=== PATIENT | male | born 1965 | race American Indian/Alaskan Native ===

== ENCOUNTER 2018-04-07 16:21 | Inpatient (IN) | payer OTHER ==
[2018-04-07] MEDS ORDERED: NACL 0.9% 1000 ML 1,000 ML IV ONE ×2 (16:34→17:33)
[2018-04-07] MEDS ORDERED: ZOFRAN IV ONE (17:33)
[2018-04-07] MEDS ORDERED: SUBLIMAZE IV ONE (17:33)
[2018-04-07 17:37] LABS: Basophils % (Auto) 0.2 % (0.0-1.8); Hematocrit 51.6 % (35.5-45.6); Hemoglobin 17.1 gm/dl (11.8-15.2); Lymphocytes # (Auto) 1.2 K/mm3 (1.2-5.4); Lymphocytes % (Auto) 8.5 % (13.4-35.0); Mean Corpuscular HGB Conc 33 % (32-34); Mean Corpuscular Hemoglobin 28 pg (28-32); Mean Corpuscular Volume 86 fl (84-94); Monocytes # (Auto) 0.7 K/mm3 (0.0-0.8); Monocytes % (Auto) 5.1 % (0.0-7.3); Platelet Count 325 K/mm3 (140-440); Red Blood Count 6.03 M/mm3 (3.65-5.03); Red Cell Distribution Width 14.6 % (13.2-15.2)
--- NOTE | 2018-04-07 17:39 | Emergency Department Report ---
HPI - General Chief Complaint: Abdominal Pain Time Seen by Provider: 04/07/18 17:34 - HPI HPI: Room 17 The patient is a 53-year-old male presented with the chief complaint of abdominal pain. The patient states his symptoms began 2 days ago with midepigastric abdominal pain. The patient states he thought it was his acid reflux. Patient states the pain continued to worsen and he has experienced nausea and vomiting. The patient states he does not have an appetite and has not eaten for the past 2 days. The patient states the pain then migrated to his his entire right abdomen and caused him to fall today prompting him to come to the emergency department. The patient is uncertain if he's had a fever. The patient gives his pain a score of 10/10 Location: [See above] Duration: [See above] Quality: [See above] Severity: [See above] Modifying factors: [see above] Context: [see above] Mode of transportation: [not driving] ED Past Medical Hx - Past Medical History Hx Hypertension: Yes Hx GERD: Yes Hx Psychiatric Treatment: Yes (depression) - Surgical History Additional Surgical History: Eye surgery, herniorrhaphy - Family History Family history: no significant - Social History Smoking Status: Current Every Day Smoker (1 pack per day) Substance Use Type: Alcohol (rarely), Cocaine (last use approximately 2 weeks ago), Marijuana ED Review of Systems ROS: Stated complaint: ABD PAIN 2 DAYS WORSEN TODAY Other details as noted in HPI Constitutional: fever (patient is uncertain) Eyes: denies: eye pain ENT: denies: throat pain Respiratory: no symptoms reported Cardiovascular: denies: chest pain Endocrine: denies: unexplained weight gain Gastrointestinal: abdominal pain, nausea, vomiting. denies: diarrhea Genitourinary: denies: dysuria Musculoskeletal: denies: back pain Skin: denies: change in color Neurological: denies: headache Physical Exam - Physical Exam Vital Signs: Vital Signs 04/07/18 16:29 Temperature 97.9 F Pulse Rate 76 Blood Pressure 184/122 Physical Exam: GENERAL: The patient is well-developed well-nourished male lying on stretcher appearing to be in moderate discomfort. [] HEENT: Normocephalic. Atraumatic. Extraocular motions are intact. Patient has moist mucous membranes. NECK: Supple. Trachea midline CHEST/LUNGS: Clear to auscultation. There is no respiratory distress noted. HEART/CARDIOVASCULAR: Regular. There is no tachycardia. There is no gallop rub or murmur. ABDOMEN: Abdomen is tender to palpation greatest in the right lower quadrant. There is tenderness to palpation in the right upper quadrant and mild discomfort to palpation in the left lower quadrant. There is no discomfort to palpation in the left upper quadrant. Patient has normal bowel sounds. There is no abdominal distention. SKIN: There is no rash. There is no edema. There is no diaphoresis. NEURO: The patient is awake, alert, and oriented. The patient is cooperative. The patient has normal speech MUSCULOSKELETAL: There is no evidence of acute injury. ED Course Vital Signs 04/07/18 16:29 Temperature 97.9 F Pulse Rate 76 Blood Pressure 184/122 - Consultations Consultation #1: 04/07/18 17:[address] Winchester 04/07/18 19:09 CT report discussed with Dr. Cannon. En route Consultation #2: 04/07/18 19:08 Vascular surgery paged 04/07/18 19:[address] Price- Will look at CT ED Medical Decision Making - Lab Data Result diagrams: 04/07/18 16:51 04/07/18 16:51 Laboratory Tests 04/07/18 04/07/18 04/07/18 16:51 16:51 17:48 WBC 14.5 H RBC 6.03 H Hgb 17.1 H Hct 51.6 H MCV 86 MCH 28 MCHC 33 RDW 14.6 Plt Count 325 Lymph % (Auto) 8.5 L [place] % (Auto) 5.1 Eos % (Auto) 0.0 Baso % (Auto) 0.2 Lymph # 1.2 [place] # 0.7 Eos # 0.0 Baso # 0.0 Seg Neutrophils % 86.2 H Seg Neutrophils # 12.5 H PT INR APTT Sodium 136 L Potassium 3.3 L Chloride 89.5 L Carbon Dioxide 27 Anion Gap 23 BUN 19 Creatinine 0.9 Estimated GFR > 60 BUN/Creatinine Ratio 21 Glucose 142 H Calcium 9.7 Total Bilirubin 0.50 AST 48 H ALT 25 Alkaline Phosphatase 97 Total Protein 7.9 Albumin 4.7 Albumin/Globulin Ratio 1.5 Blood Type O POSITIVE 04/07/18 17:56 WBC RBC Hgb Hct MCV MCH MCHC RDW Plt Count Lymph % (Auto) [place] % (Auto) Eos % (Auto) Baso % (Auto) Lymph # [place] # Eos # Baso # Seg Neutrophils % Seg Neutrophils # PT 12.7 INR 0.91 APTT 30.3 Sodium Potassium Chloride Carbon Dioxide Anion Gap BUN Creatinine Estimated GFR BUN/Creatinine Ratio Glucose Calcium Total Bilirubin AST ALT Alkaline Phosphatase Total Protein Albumin Albumin/Globulin Ratio Blood Type - Radiology Data Radiology results: report reviewed (CT abdomen and pelvis), image reviewed (CT abdomen and pelvis) [facility] [address] [place] [address] Cat Scan Report Signed Patient: KATIANA SIMENTAL JR MR#: [id number] : 1965 Acct:[id number] Age/Sex: 53 / M ADM Date: 04/07/18 Loc: ED Attending Dr: Ordering Physician: SAMUEL LI MD Date of Service: 04/07/18 Procedure(s): CT abdomen pelvis w con Accession Number(s): [id number] cc: SAMUEL LI MD FINAL REPORT EXAM: CT ABDOMEN PELVIS W CON HISTORY: right-sided abdominal pain. Concern for free air TECHNIQUE: Axial contrasted images were performed from the lung bases to the pubic symphysis. Multiplanar reformats are performed on the acquisition scanner. Total exam DLP 1900.33 mGy-cm Comparison: Plain film earlier same day FINDINGS: Mild posterior dependent atelectasis. Thickened distal esophagus incompletely assessed. Decompressed stomach is mildly motion degraded. There is free fluid around the distal gastric antrum/pylorus/duodenum. There is free fluid in the right pericolic gutter. There is free intraperitoneal air. Normal enhancement and appearance of the liver, spleen, pancreas, and bilateral kidneys. There is bilateral adrenal hyperplasia. Normal enhancement of the aorta and mesenteric vessels. Free pelvic fluid. Moderately distended urinary bladder. Prostate is upper limits normal size. There is a left inguinal hernia containing fat. Sigmoid colon is minimally distended. Transverse colon is distended with air. Proximal transverse colon demonstrates oral contrast. There are multiple small retroperitoneal lymph nodes. There is mild soft tissue reticulation within the mesenteric and omental fat in the right upper quadrant and midline abdomen. Delayed phase imaging demonstrates normal excretion of contrast from the kidneys and filling of the urinary bladder. There is mild thickening of the distal gastric antral wall. Lumbosacral degenerative disc disease. There is a focal dissection of the right common femoral artery with normal perfusion identified distally. The craniocaudal segment of dissection is approximately 2.5 centimeters. IMPRESSION: Free intraperitoneal air and fluid. Non dependent air bubbles around the liver and anterior to the splenic flexure in the left upper quadrant. The most localized air bubbles appear to be around the region the distal gastric antrum and pylorus with air and fluid localized to this location. Findings are concerning for gastric or duodenal ulcer disease with perforation. Exam is motion degraded which limits the sensitivity. Multiple mildly prominent gastrohepatic ligament lymph nodes. Distal esophagus is incompletely imaged but extremely thick-walled. Bilateral adrenal hyperplasia. Focally dissected right common femoral artery with normal perfusion distally although only a limited distal section was imaged. This finding is seen on images 164 to 174 series two. Critical level 1 result. Findings are called on 04/07/2018 at [address] Li. Transcribed By: MP Dictated By: LINUS YANCEY Electronically Authenticated By: LINUS YANCEY Signed Date/Time: 04/07/181902 DD/ 02 TD/TT: 04/07/181902 - Differential Diagnosis bowel perforation, appendicitis Critical care attestation.: If time is entered above; I have spent that time in minutes in the direct care of this critically ill patient, excluding procedure time. ED Disposition Clinical Impression: Bowel perforation, Acute abdominal pain, Dissection of other specified artery Disposition: OP ADMIT IP TO THIS HOSP Is pt being admited?: Yes Does the pt Need Aspirin: No Condition: Serious Referrals: PRIMARY CARE,MD [Primary Care Provider] - 3-5 Days Time of Disposition: 19:25 (awaiting OR)
[2018-04-07] MEDS ORDERED: ZOSYN/NS 4.5GM/100ML 4.5 GM/100 ML VIAL IV ONE (17:45)
[2018-04-07 17:50] LABS: Alanine Aminotransferase 25 units/L (7-56); Albumin 4.7 g/dL (3.9-5); BUN/Creatinine Ratio 21; Blood Urea Nitrogen 19 mg/dL (9-20); Calcium 9.7 mg/dL (8.4-10.2); Hemolysis Index 5
[2018-04-07] MEDS ORDERED: FLAGYL 500 MG/100 ML 500 MG/100 ML BAG IV ONE (18:00)
[2018-04-07 18:27] LABS: INR 0.91 (0.87-1.13)
[2018-04-07 18:28] LABS: Partial Thromboplastin Time 30.3 Sec. (24.2-36.6)
[2018-04-07] MEDS ORDERED: VERSED ONE (18:35)
[2018-04-07] MEDS ORDERED: XYLOCAINE MPF 2% ONE (18:35)
[2018-04-07] MEDS ORDERED: QUELICIN ONE (18:35)
[2018-04-07] MEDS ORDERED: SUBLIMAZE ONE ×2 (18:35→22:04)
[2018-04-07] MEDS ORDERED: DIPRIVAN 10 MG/ML IV ONE (18:35)
[2018-04-07] MEDS ORDERED: ZEMURON IV ONE (18:35)
[2018-04-07] MEDS ORDERED: ANCEF ONE ×2 (18:36→19:08)
--- NOTE | 2018-04-07 18:40 | XRay Report ---
FINAL REPORT EXAM: XR ABDOMEN 2V HISTORY: abd pain TECHNIQUE: Supine and upright views of the abdomen were performed Comparison: CT same day FINDINGS: There is free intraperitoneal air. Bowel gas pattern is nonspecific. IMPRESSION: Free intraperitoneal air. Critical level 1 result. Findings called on 04/07/[address] examination dictation. 1833 hours.
--- NOTE | 2018-04-07 18:42 | History and Physical Report ---
History of Present Illness Chief complaint: My stomach hurts real bad History of present illness: 53 YO Male with HTN, GERD, Nicotine Dependence, Depression, Substance Abuse presents to ED for evaluation. Pt states that he has experienced abdominal pain over the past 2 days, with worsening symptoms over the same time frame. Pt states that his pain is 10/10, initially localized to the right side of his abdomen, but has spread over his entire abdomen over since the pain started. Pt acknowledges persistent nausea, as well as multiple episodes of vomiting. Pt is unable to tolerate oral diet. Pain is worse with movement, and touching his abdomen, and is less pain with non movement. Pt seen and evaluated in ED and found to have Peritonitis as well as Perforated Bowel. Pt admitted to telemetry. Surgery consulted. Pt taken urgently to OR as per surgical team. Past History Past Medical History: GERD, hypertension, other (Depression) Past Surgical History: hernia repair, Other (eye surgery) Social history: smoking, other (Cocaine use, ) Medications and Allergies Allergies Allergy/AdvReac Type Severity Reaction Status Date / Time No Known Allergies Allergy Unverified 04/07/18 16:33 Active Meds: Active Medications Sodium Chloride (Nacl 0.9% 1000 Ml) 1,000 mls @ 250 mls/hr IV ONCE ONE Stop: 04/07/18 20:33 Last Admin: 04/07/18 17:50 Dose: 250 mls/hr Review of Systems Constitutional: no weight loss, no weight gain, no fever, no chills Ears, nose, mouth and throat: no ear pain, no ear discharge, no tinnitis, no decreased hearing, no nose pain, no nasal congestion Cardiovascular: no chest pain, no orthopnea, no palpitations, no edema, no syncope, no lightheadedness Respiratory: no cough, no cough with sputum, no excessive sputum, no hemoptysis , no shortness of breath Gastrointestinal: abdominal pain, nausea, vomiting, no hematemesis, no coffee ground emesis, no BRBPR, no melena, no hematochezia, no excessive gas, no jaundice, no dyspepsia/bloating Genitourinary Male: no dysuria, no hematuria, no flank pain, no discharge, no urinary frequency, no nocturia Rectal: no pain, no incontinence, no bleeding Musculoskeletal: no neck stiffness, no neck pain, no shooting arm pain, no arm numbness/tingling, no low back pain, no shooting leg pain Integumentary: no rash, no pruritis, no redness, no sores, no wounds Neurological: no transient paralysis, no paralysis, no weakness, no parathesias , no numbness, no tingling, no seizures, no syncope Psychiatric: no anxiety, no memory loss, no change in sleep habits, no sleep disturbances, no insomnia, no hypersomnia, no change in appetite, no change in libido Endocrine: no cold intolerance, no heat intolerance, no polyphagia, no excessive thirst, no polydipsia, no polyuria, no nocturia, no excessive sweating Hematologic/Lymphatic: no easy bruising, no easy bleeding, no lymphadenopathy, no lymphedema Allergic/Immunologic: no urticaria, no allergic rhinitis, no wheezing, no persistent infections, no anaphylaxis, no angioedema Exam - Constitutional Vitals: Temp Pulse Resp BP Pulse Ox 97.9 F 50 L 14 184/122 04/07/18 16:29 04/07/18 17:49 04/07/18 17:50 04/07/18 16:29 General appearance: Present: mild distress - EENT Eyes: Present: PERRL, miosis ENT: hearing intact, clear oral mucosa - Neck Neck: Present: supple, normal ROM - Respiratory Respiratory effort: normal Respiratory: bilateral: CTA - Cardiovascular Heart Sounds: Present: S1 & S2. Absent: rub, click - Extremities Extremities: pulses symmetrical, No edema Peripheral Pulses: within normal limits - Abdominal General gastrointestinal: Present: soft, tender, non-distended, rigid, hypoactive bowel sounds. Absent: mass, hernia, other Localized gastrointestinal: tender: diffuse, guarding: diffuse, rebound: diffuse Male genitourinary: Present: normal - Rectal Rectal Exam: normal exam-external/orifice - Integumentary Integumentary: Present: clear, warm, dry - Musculoskeletal Musculoskeletal: gait normal, strength equal bilaterally - Psychiatric Psychiatric: appropriate mood/affect, intact judgment & insight - Neurologic Neurologic: CNII-XII intact, moves all extremities Results - Labs CBC & Chem 7: 04/07/18 16:51 04/07/18 16:51 Labs: Abnormal lab results 04/07/18 04/07/18 Range/Units 16:51 16:51 WBC 14.5 H (4.5-11.0) K/mm3 RBC 6.03 H (3.65-5.03) M/mm3 Hgb 17.1 H (11.8-15.2) gm/dl Hct 51.6 H (35.5-45.6) % Lymph % (Auto) 8.5 L (13.4-35.0) % Seg Neutrophils % 86.2 H (40.0-70.0) % Seg Neutrophils # 12.5 H (1.8-7.7) K/mm3 Sodium 136 L (137-145) mmol/L Potassium 3.3 L (3.6-5.0) mmol/L Chloride 89.5 L (98-107) mmol/L Glucose 142 H (75-100) mg/dL AST 48 H (5-40) units/L Assessment and Plan - Patient Problems (1) Peritonitis (acute) generalized Current Visit: Yes Status: Acute Plan to address problem: IV antibiotic therapy, Surgery consulted in ED, Pt taken urgently to OR for surgical intervention. CT Abdomen pelvis, NPO, (2) Nicotine dependence with withdrawal Current Visit: Yes Status: Acute Qualifiers: Nicotine product type: cigarettes Qualified Code(s): F17.213 - Nicotine dependence, cigarettes, with withdrawal Plan to address problem: smoking cessation counseling, supportive care. (3) Injury of right common femoral artery Current Visit: Yes Status: Acute Qualifiers: Encounter type: initial encounter Qualified Code(s): S75.001A - Unspecified injury of femoral artery, right leg, initial encounter Plan to address problem: Vascular surgery consulted in ED, (4) Bowel perforation Current Visit: Yes Status: Acute Plan to address problem: CT ABdomen/pelvis, surgery consulted in ED, pain control, serial abdominal exam (5) SIRS (systemic inflammatory response syndrome) Current Visit: Yes Status: Acute Plan to address problem: Iv antibiotic therapy, supportive care, CBC,CMP, chest x ray, urinalysis (6) Hypertensive urgency, malignant Current Visit: Yes Status: Acute Plan to address problem: monitor uop q shift, IV hydralazine prn, continue medical management (7) DVT prophylaxis Current Visit: Yes Status: Acute Plan to address problem: SCD to BLE while in bed.
[2018-04-07] MEDS ORDERED: SODIUM CHLORIDE FLUSH SYRINGE 10 ML IV PRN (18:46)
[2018-04-07] MEDS ORDERED: TYLENOL PO PRN (18:46)
[2018-04-07] MEDS ORDERED: ZOFRAN IV PRN (18:46)
[2018-04-07] MEDS ORDERED: NACL 0.9% 1000 ML IV ONE (18:51)
[2018-04-07] MEDS ORDERED: DILAUDID IV ONE (18:54)
--- NOTE | 2018-04-07 19:10 | Cat Scan Report ---
FINAL REPORT EXAM: CT ABDOMEN PELVIS W CON HISTORY: right-sided abdominal pain. Concern for free air TECHNIQUE: Axial contrasted images were performed from the lung bases to the pubic symphysis. Multiplanar reformats are performed on the acquisition scanner. Total exam DLP 1900.33 mGy-cm Comparison: Plain film earlier same day FINDINGS: Mild posterior dependent atelectasis. Thickened distal esophagus incompletely assessed. Decompressed stomach is mildly motion degraded. There is free fluid around the distal gastric antrum/pylorus/duodenum. There is free fluid in the right pericolic gutter. There is free intraperitoneal air. Normal enhancement and appearance of the liver, spleen, pancreas, and bilateral kidneys. There is bilateral adrenal hyperplasia. Normal enhancement of the aorta and mesenteric vessels. Free pelvic fluid. Moderately distended urinary bladder. Prostate is upper limits normal size. There is a left inguinal hernia containing fat. Sigmoid colon is minimally distended. Transverse colon is distended with air. Proximal transverse colon demonstrates oral contrast. There are multiple small retroperitoneal lymph nodes. There is mild soft tissue reticulation within the mesenteric and omental fat in the right upper quadrant and midline abdomen. Delayed phase imaging demonstrates normal excretion of contrast from the kidneys and filling of the urinary bladder. There is mild thickening of the distal gastric antral wall. Lumbosacral degenerative disc disease. There is a focal dissection of the right common femoral artery with normal perfusion identified distally. The craniocaudal segment of dissection is approximately 2.5 centimeters. IMPRESSION: Free intraperitoneal air and fluid. Non dependent air bubbles around the liver and anterior to the splenic flexure in the left upper quadrant. The most localized air bubbles appear to be around the region the distal gastric antrum and pylorus with air and fluid localized to this location. Findings are concerning for gastric or duodenal ulcer disease with perforation. Exam is motion degraded which limits the sensitivity. Multiple mildly prominent gastrohepatic ligament lymph nodes. Distal esophagus is incompletely imaged but extremely thick-walled. Bilateral adrenal hyperplasia. Focally dissected right common femoral artery with normal perfusion distally although only a limited distal section was imaged. This finding is seen on images 164 to 174 series two. Critical level 1 result. Findings are called on 04/07/2018 at [address] Sauceda.
--- NOTE | 2018-04-07 19:28 | Anesthesia Consultation ---
Anesthesia Consult and Med Hx Date of service: 04/07/18 - Airway Anesthetic Teeth Evaluation: Poor (multiple missing; denies loose teeth) ROM Head & Neck: Adequate Mental/Hyoid Distance: Adequate Mallampati Class: Class II Intubation Access Assessment: Probably Good - Pulmonary Exam CTA: Yes - Cardiac Exam Cardiac Exam: RRR - Pre-Operative Health Status ASA Pre-Surgery Classification: ASA3, Emergency Proposed Anesthetic Plan: General - Pulmonary Hx Smoking: Yes (current; 1PPD x many years) Hx Asthma: No Hx Respiratory Symptoms: No SOB: No - Cardiovascular System Hx Hypertension: Yes (noncompliant with home meds) Hx Heart Attack/AMI: No Hx Angina: No - Central Nervous System Hx Neuromuscular Disorder: No Hx Seizures: No CVA: No Hx Psychiatric Problems: Yes (anxiety; uncertain of home anxiety meds) - Endocrine Hx Renal Disease: No Hx Liver Disease: No Hx Insulin Dependent Diabetes: No Hx Non-Insulin Dependent Diabetes: No Hx Thyroid Disease: No - Hematic Hx Anemia: No - Other Systems Hx Substance Use: Yes (cocaine-last reported use 2 weeks ago; marijuana) Hx Cancer: No Hx Obesity: No - Additional Comments Anesthesia Medical History Comments: PMH HTN noncompliant with meds, cocaine and marijuana use with 2 days of abdominal pain, N/V. Suspicious for perforated bowel.
--- NOTE | 2018-04-07 19:42 | Progress Note ---
Assessment and Plan Full consult dictated 53 y/o male perf viscus. acute abd to O.R. guarded Selected Entries 04/07/18 19:15 Pulse Rate 77 Respiratory 19 Rate Blood Pressure 210/177 Laboratory Tests 04/07/18 04/07/18 04/07/18 16:51 16:51 17:56 WBC 14.5 H Hgb 17.1 H Hct 51.6 H PT 12.7 INR 0.91 APTT 30.3 Sodium 136 L Potassium 3.3 L Chloride 89.5 L Glucose 142 H AST 48 H ALT 25 Alkaline Phosphatase 97 Objective Vital Signs - 12hr 04/07/18 04/07/18 04/07/18 16:29 17:35 17:49 Temperature 97.9 F 98.4 F Pulse Rate 76 90 50 L Respiratory 25 H 13 Rate Blood Pressure 184/122 Blood Pressure 198/125 [Left] O2 Sat by Pulse 96 Oximetry 04/07/18 04/07/18 04/07/18 17:50 18:12 18:15 Temperature Pulse Rate 93 H 90 Respiratory 14 25 H Rate Blood Pressure 198/128 Blood Pressure [Left] O2 Sat by Pulse Oximetry 04/07/18 04/07/18 04/07/18 18:20 18:31 18:45 Temperature Pulse Rate 81 60 Respiratory 18 15 16 Rate Blood Pressure 184/104 210/101 Blood Pressure [Left] O2 Sat by Pulse Oximetry 04/07/18 04/07/18 19:01 19:15 Temperature Pulse Rate 64 77 Respiratory 12 19 Rate Blood Pressure 212/110 210/177 Blood Pressure [Left] O2 Sat by Pulse Oximetry - Labs 04/07/18 16:51 04/07/18 16:51 Diabetes panel 04/07/18 Range/Units 16:51 Sodium 136 L (137-145) mmol/L Potassium 3.3 L (3.6-5.0) mmol/L Chloride 89.5 L (98-107) mmol/L Carbon Dioxide 27 (22-30) mmol/L BUN 19 (9-20) mg/dL Creatinine 0.9 (0.8-1.5) mg/dL Glucose 142 H (75-100) mg/dL Calcium 9.7 (8.4-10.2) mg/dL AST 48 H (5-40) units/L ALT 25 (7-56) units/L Alkaline Phosphatase 97 (35-129) units/L Total Protein 7.9 (6.3-8.2) g/dL Albumin 4.7 (3.9-5) g/dL Calcium panel 04/07/18 Range/Units 16:51 Calcium 9.7 (8.4-10.2) mg/dL Albumin 4.7 (3.9-5) g/dL Pituitary panel 04/07/18 Range/Units 16:51 Sodium 136 L (137-145) mmol/L Potassium 3.3 L (3.6-5.0) mmol/L Chloride 89.5 L (98-107) mmol/L Carbon Dioxide 27 (22-30) mmol/L BUN 19 (9-20) mg/dL Creatinine 0.9 (0.8-1.5) mg/dL Glucose 142 H (75-100) mg/dL Calcium 9.7 (8.4-10.2) mg/dL Adrenal panel 04/07/18 Range/Units 16:51 Sodium 136 L (137-145) mmol/L Potassium 3.3 L (3.6-5.0) mmol/L Chloride 89.5 L (98-107) mmol/L Carbon Dioxide 27 (22-30) mmol/L BUN 19 (9-20) mg/dL Creatinine 0.9 (0.8-1.5) mg/dL Glucose 142 H (75-100) mg/dL Calcium 9.7 (8.4-10.2) mg/dL Total Bilirubin 0.50 (0.1-1.2) mg/dL AST 48 H (5-40) units/L ALT 25 (7-56) units/L Alkaline Phosphatase 97 (35-129) units/L Total Protein 7.9 (6.3-8.2) g/dL Albumin 4.7 (3.9-5) g/dL
[2018-04-07] MEDS ORDERED: VANCOMYCIN 1,750 MG in NACL 0.9% 500 ML 500 ML IV ONE (19:51)
[2018-04-07 19:53] LABS: Bilirubin,Urine NEG (Negative); Blood,Urine MOD (Negative); Color,Urine Yellow (Yellow); Mucus,Urine 2+ /HPF; Urobilinogen,Urine < 2.0 mg/dL (<2.0)
--- NOTE | 2018-04-07 20:01 | Event Note ---
Date: 04/07/18 Patient with perforated viscus on his way to the OR was noted to have a focal right common femoral artery dissection without flow limitation. Patient appears outflow distal in both the SFA and profunda. Once patient is stabilized from a abdominal point of view, will evaluate further.
[2018-04-07] MEDS ORDERED: APRESOLINE IV ONE (20:11)
[2018-04-07] MEDS ORDERED: NACL 0.9% 1000 ML 1,000 ML ONE (20:21)
[2018-04-07] MEDS ORDERED: DIFLUCAN 200 MG/100 ML BAG IV ONE (20:29)
[2018-04-07] MEDS ORDERED: DIPRIVAN 10 MG/ML 1,000 MG/100 ML BOTTLE IV ONE (21:40)
[2018-04-07] MEDS ORDERED: DILAUDID ONE (21:40)
[2018-04-07] MEDS: DILAUDID IV PRN ×4 (21:50→22:55)
[2018-04-07] MEDS ORDERED: PROTONIX IV SCH (22:00)
[2018-04-07] MEDS: SUBLIMAZE IV PRN ×2 (22:05→23:40)
[2018-04-07] MEDS ORDERED: VASELINE LIP THERAPY TP PRN (22:10)
--- NOTE | 2018-04-07 22:16 | Anesthesia Day of Surgery ---
Anesthesia Day of Surgery - Day of Surgery Patient Examined: Yes Patient H&P Reviewed: Yes Patient is NPO: Yes
[2018-04-07] MEDS ORDERED: APRESOLINE IV PRN (22:28)
[2018-04-07] MEDS: NORMODYNE IV PRN (22:30)
[2018-04-07] MEDS ORDERED: DIPRIVAN 10 MG/ML 1,000 MG/100 ML BOTTLE IV SCH (23:00)
--- NOTE | 2018-04-07 23:01 | XRay Report ---
FINAL REPORT EXAM: XR CHEST 1V AP HISTORY: chest pain TECHNIQUE: AP portable view of the chest PRIORS: None. FINDINGS: Lines, tubes, and devices: Endotracheal tube terminates 6 cm above the sabino. Nasogastric tube tip terminates within the stomach. Lungs and pleura: Trachea is normal in position. Lungs are clear of infiltrate, pleural effusion, vascular congestion, or pneumothorax. Cardiomediastinal silhouette: Cardiac and mediastinal silhouettes are unremarkable. Other: Bony structures are intact. IMPRESSION: No acute cardiopulmonary process seen.
[2018-04-07] MEDS: APRESOLINE IV PRN (23:05)
--- NOTE | 2018-04-07 23:35 | Consultation ---
ADMITTING DIAGNOSIS: Rule out perforated viscus. HISTORY OF PRESENT ILLNESS: The patient is a 53-year-old gentleman who presented to the Emergency Room with approximately 2-day history of progressively worsening epigastric and generalized abdominal pain accompanied by nausea and vomiting. PAST MEDICAL HISTORY: Pertinent for GERD, hypertension and anxiety. PAST SURGICAL HISTORY: Status post right inguinal hernia repair and also surgery. ALLERGIES: No known allergies. MEDICATIONS: Includes amlodipine. FAMILY HISTORY: Hypertension. SOCIAL HISTORY: He was a heavy drinker, but " Smokes a pack a day for approximately 35 years. PHYSICAL EXAMINATION: GENERAL: At this time reveals the patient to be in obvious distress and complaining of pain. VITAL SIGNS: Show a high blood pressure of 210/177 consistent with his abdominal pain, pulse is 77, respirations of 19. ABDOMEN: Examination of the abdomen reveals epigastric tenderness and diffuse abdominal tenderness consistent with acute abdomen. Bowel sounds are hypoactive to absent. LABORATORY AND DIAGNOSTIC DATA: Lab work at present includes a CBC which shows a white count of 14.5, H and H is 17 and 51. PT, PTT and INR within normal limits. Electrolytes show low sodium of 136, low potassium of 3.3, low chloride of 89.5. BUN is 19, creatinine is 0.9. LFTs are essentially normal. Glucose is 142. A CT scan of the abdomen has been performed whose findings show free intraperitoneal air and fluid appears to be more so localized around the gastric antrum and pylorus. Also, there is mention of a focal dissecting right common femoral artery with normal perfusion distally. IMPRESSION: 1. At this time is that of a 53-year-old hypertensive gentleman with an acute abdomen, perforated viscus most likely secondary to perforated peptic ulcer. 2. I described dissection in right common femoral. PLAN: 1. At this time is to proceed with the emergency exploratory laparotomy and repair of perforated viscus. 2. Vascular Surgery has also been consulted so they can evaluate the patient whether they need to do anything endovascularly or open. Condition at this time is guarded. I will proceed with emergency exploratory laparotomy. Thank you very much for consultation. JOB# [id number] FP/NTS
[2018-04-07] MEDS ORDERED: NARCAN 0.4 MG/1 ML IV PRN (23:40)
[2018-04-07] MEDS ORDERED: NACL 0.9% 1000 ML 1,000 ML IV SCH (23:45)
--- NOTE | 2018-04-07 23:50 | Post Anesthesia Evaluation ---
- Post Anesthesia Evaluation Patient Participated: Yes Airway Patent: Yes Stable Respiratory Function: Yes Nausea/Vomiting: No Temp > 96.8F: Yes Pain Manageable: Yes (Dilaudid PUSHER RUNNER ordered for analgesia) Adequeate Hydration: Yes Anesthesia Complications: No Block Receding Appropriately: Not Applicable Patient on Ventilator: No (Extubated in PACU at 2250 to AR.) Other Comments: Arrived to PACU intubated/sedated. Prior to extubation, demonstrated adequate muscle strength and followed commands. Extubated to AR and encouraged IS use. Significant hypertension (near preop baseline) which is being managed with IV antihypertensives and analgesics. Patient will be transferred to ICU once bed available.
[2018-04-08] MEDS: DILAUDID PCA 6MG/30ML IV SCH ×2 (00:20→17:12)
[2018-04-08] MEDS: ZOSYN/NS 4.5GM/100ML 4.5 GM/100 ML VIAL IV SCH ×3 (01:15→17:13)
--- NOTE | 2018-04-08 05:51 | Operative Report ---
PREOPERATIVE DIAGNOSIS: Acute abdomen and sepsis, rule out perforated viscus. POSTOPERATIVE DIAGNOSIS: Perforated prepyloric ulcer. PROCEDURE: Emergency exploratory laparotomy and Paul patch of perforated prepyloric ulcer. SURGEON: Jorje Winchester MD ANESTHESIA: General. ESTIMATED BLOOD LOSS: Minimal. DRAINS: No drains. COMPLICATIONS: No complications. DESCRIPTION OF PROCEDURE: The patient was taken to the operating room, prepped and draped in the usual sterile fashion. Midline incision was made, extending from xiphoid down to umbilicus. Electrocautery was used to dissect through linea alba and abdomen entered. Upon entrance into the abdomen, bilious drainage was noted in the subhepatic space. This fluid was cultured with aerobic and anaerobic cultures. A pull suction was used to suction out the fluid and the area inspected. A large prepyloric ulcer was identified. Digital inspection of the undersurface of the ulcer down into the mucosa revealed no evidence of induration or gross pathology. A Paul patch was then performed. Four 3-0 silk sutures were placed through the serosa and mucosa on either side of the perforation. A portion of omentum was then on laid over the area and the sutures tied over the omental patch. The entire area was irrigated copiously and suctioned dry. Checked for hemostasis and noted to be dry. The patient was placed in a reverse Trendelenburg position and once again the entire peritoneal cavity was copiously irrigated including the subdiaphragmatic areas as well as colonic gutters and pelvis until the aspirate was clear. The patch was once again inspected and noted to be intact. No evidence of any further leakage or bilious drainage noted. The fascia was then closed with interrupted #1 Vicryl suture. Subcutaneous tissues copiously irrigated. Skin closed loosely with ken and packed with Telfa fracisco soaked in Betadine. Fluffs and pressure dressing applied. Abdominal binder will also be placed. The patient tolerated the procedure well, but remains in guarded condition. The patient is being kept intubated as per Anesthesia and will be transferred to ICU post-recovery for further resuscitation and management. JOB# [id number] RAYO/TYLER
[2018-04-08] MEDS: APRESOLINE IV PRN (08:00)
[2018-04-08 09:02] LABS: Hematocrit 47.1 % (35.5-45.6); Hemoglobin 15.8 gm/dl (11.8-15.2); Mean Corpuscular HGB Conc 34 % (32-34); Mean Corpuscular Hemoglobin 29 pg (28-32); Mean Corpuscular Volume 85 fl (84-94); Platelet Count 266 K/mm3 (140-440); Red Blood Count 5.52 M/mm3 (3.65-5.03); Red Cell Distribution Width 14.8 % (13.2-15.2)
[2018-04-08 09:15] LABS: BUN/Creatinine Ratio 20; Blood Urea Nitrogen 16 mg/dL (9-20); Calcium 8.1 mg/dL (8.4-10.2); Hemolysis Index 6
[2018-04-08] MEDS: D5W/0.45% NACL/KCL 40 MEQ 40 MEQ/1,000 ML BAG IV SCH ×2 (09:33→19:19)
[2018-04-08] MEDS ORDERED: KCL IV SCH (10:00)
[2018-04-08] MEDS ORDERED: D5 IV SCH (10:00)
[2018-04-08] MEDS ORDERED: [UNRECOGNIZED DRUG - OTHER] IV SCH (10:00)
--- NOTE | 2018-04-08 10:37 | Consultation ---
History of Present Illness - Reason for Consult Consult date: 04/08/18 right common femoral artery dissection - History of Present Illness Patient presents with a 2 day history of worsening abdominal pain and was found to have a perforated gastric ulcer for which he underwent operative repair. His initial CT demonstrated short segment dissection in his right common femoral artery. There appears to be adequate blood flow distally. The patient does not have any history of right groin catheterization. He is hypertensive. Past History Past Medical History: GERD, hypertension, other (Depression) Past Surgical History: hernia repair, Other (eye surgery) Social history: smoking, other (Cocaine use, ) Medications and Allergies Allergies Allergy/AdvReac Type Severity Reaction Status Date / Time No Known Allergies Allergy Unverified 04/07/18 16:33 Active Meds: Active Medications Acetaminophen (Tylenol) 650 mg PO Q4H PRN PRN Reason: Pain MILD(1-3)/Fever >100.5/DEL CID Fentanyl (Sublimaze) 50 mcg IV Q20M PRN PRN Reason: Pain , Severe (7-10) Last Admin: 04/07/18 23:40 Dose: 50 mcg Hydralazine HCl (Apresoline) 10 mg IV Q6HR PRN PRN Reason: Hypertension Last Admin: 04/08/18 08:00 Dose: 10 mg Hydromorphone/Sodium Chloride (Dilaudid Alteration Manager 6mg/30ml) 0 mg IV DIRECT LUZ; Protocol Last Admin: 04/08/18 00:20 Dose: 0.2 cartstart Hydrophilic Ointment (Vaseline Lip Therapy) 1 applic TP Q2HR PRN PRN Reason: Dry Lips Piperacillin Sod/Tazobactam Sod (Zosyn/Ns 4.5gm/100ml) 4.5 gm in 100 mls @ 200 mls/hr IV Q8H LUZ; Protocol Last Admin: 04/08/18 09:24 Dose: 200 mls/hr Fluconazole (Diflucan) 200 mg in 100 mls @ 100 mls/hr IV Q24HR LUZ; Protocol Propofol (Diprivan 10 Mg/Ml) 1,000 mg in 100 mls @ 2.654 mls/hr IV TITR LUZ; Protocol Last Admin: 04/07/18 21:45 Dose: Not Given Sodium Chloride (Nacl 0.9% 1000 Ml) 1,000 mls @ 42 mls/hr IV DIRECT LUZ Potassium Chloride/Dextrose/Sod Cl (D5w/0.45% Nacl/Kcl 40 Meq) 40 meq in 1,000 mls @ 125 mls/hr IV DIRECT LUZ Last Admin: 04/08/18 09:33 Dose: 125 mls/hr Labetalol HCl (Normodyne) 5 mg IV Q20M PRN PRN Reason: Hypertension Last Admin: 04/07/18 22:30 Dose: 5 mg Naloxone HCl (Narcan 0.4 Mg/1 Ml) 0.1 mg IV Q2MIN PRN PRN Reason: Res Rate </= 8 or 02 SAT < 92% Ondansetron HCl (Zofran) 4 mg IV Q8H PRN PRN Reason: Nausea And Vomiting Pantoprazole Sodium (Protonix) 40 mg IV DAILY LUZ Stop: 04/12/18 21:59 Sodium Chloride (Sodium Chloride Flush Syringe 10 Ml) 10 ml IV BID LUZ Sodium Chloride (Sodium Chloride Flush Syringe 10 Ml) 10 ml IV PRN PRN PRN Reason: LINE FLUSH Review of Systems All systems: negative Exam - Constitutional Vitals: Temp Pulse Resp BP Pulse Ox 98.3 F 89 18 139/84 93 04/08/18 10:06 04/08/18 10:06 04/08/18 10:06 04/08/18 10:06 04/08/18 10:06 General appearance: Present: no acute distress - EENT Eyes: Present: PERRL ENT: hearing intact - Neck Neck: Present: supple, other (NG tube) - Respiratory Respiratory effort: normal - Abdominal General gastrointestinal: Present: deferred - Rectal Rectal Exam: deferred - Psychiatric Psychiatric: appropriate mood/affect, cooperative Results - Labs CBC & Chem 7: 04/08/18 08:43 04/08/18 08:43 Labs: Abnormal lab results 04/07/18 04/07/18 04/07/18 Range/Units 16:34 16:51 16:51 WBC 14.5 H (4.5-11.0) K/mm3 RBC 6.03 H (3.65-5.03) M/mm3 Hgb 17.1 H (11.8-15.2) gm/dl Hct 51.6 H (35.5-45.6) % Lymph % (Auto) 8.5 L (13.4-35.0) % Seg Neutrophils % 86.2 H (40.0-70.0) % Seg Neutrophils # 12.5 H (1.8-7.7) K/mm3 Sodium 136 L (137-145) mmol/L Potassium 3.3 L (3.6-5.0) mmol/L Chloride 89.5 L (98-107) mmol/L Glucose 142 H (75-100) mg/dL Calcium (8.4-10.2) mg/dL AST 48 H (5-40) units/L Ur Specific [place] 1.060 H (1.003-1.030) Urine WBC (Auto) 27.0 H (0.0-6.0) /HPF 04/08/18 04/08/18 Range/Units 08:43 08:43 WBC 19.7 H (4.5-11.0) K/mm3 RBC 5.52 H (3.65-5.03) M/mm3 Hgb 15.8 H (11.8-15.2) gm/dl Hct 47.1 H (35.5-45.6) % Lymph % (Auto) (13.4-35.0) % Seg Neutrophils % (40.0-70.0) % Seg Neutrophils # (1.8-7.7) K/mm3 Sodium 136 L (137-145) mmol/L Potassium (3.6-5.0) mmol/L Chloride (98-107) mmol/L Glucose 105 H (75-100) mg/dL Calcium 8.1 L D (8.4-10.2) mg/dL AST (5-40) units/L Ur Specific [place] (1.003-1.030) Urine WBC (Auto) (0.0-6.0) /HPF - Imaging and Cardiology CT scan - abdomen: image reviewed Assessment and Plan Patient with incidentally noted right common femoral artery dissection. He will need further evaluation with a CTA of the chest, abdomen, pelvis with runoff to the feet to determine if there are additional dissections. This can be performed during this hospitalization however, there is no urgency
[2018-04-08] MEDS: DIFLUCAN 200 MG/100 ML BAG IV SCH (11:24)
[2018-04-08] MEDS: PROTONIX IV SCH (11:37)
[2018-04-08] MEDS: SODIUM CHLORIDE FLUSH SYRINGE 10 ML IV SCH ×2 (11:38→22:50)
[2018-04-08] MEDS ORDERED: CHLORASEPTIC MM PRN (12:21)
--- NOTE | 2018-04-08 12:25 | Progress Note ---
Assessment and Plan POD 0 Pt just recently transferred to surgical floor c/o abd pain Abd soft, dressings dry. neg BS labs as below. IS d/c diego in am begin local wd care in am awaiting ID eval and intra op cults surgically stable continue present care Selected Entries 04/08/18 10:52 Temperature 98.3 F Pulse Rate 95 H Respiratory 20 Rate Blood Pressure 139/84 [Left] Laboratory Tests 04/07/18 04/08/18 04/08/18 16:51 08:43 08:43 WBC 14.5 H 19.7 H Hgb 15.8 H Hct 47.1 H Sodium 136 L Potassium 3.8 Chloride 98.5 Carbon Dioxide 24 Anion Gap 17 BUN 16 Creatinine 0.8 Objective Vital Signs - 12hr 04/08/18 04/08/18 04/08/18 00:30 01:00 01:30 Temperature 98.2 F Pulse Rate 97 H 97 H 102 H Respiratory 10 L 15 10 L Rate Respiratory Rate [Abdomen] Blood Pressure Blood Pressure 162/105 149/101 160/106 [Left] O2 Sat by Pulse 95 95 95 Oximetry 04/08/18 04/08/18 04/08/18 02:00 02:30 03:00 Temperature 98.3 F Pulse Rate 89 86 94 H Respiratory 12 10 L 22 Rate Respiratory Rate [Abdomen] Blood Pressure Blood Pressure 178/97 169/97 162/96 [Left] O2 Sat by Pulse 96 96 96 Oximetry 04/08/18 04/08/18 04/08/18 04:00 05:00 06:00 Temperature 98.6 F 98.2 F Pulse Rate 84 88 82 Respiratory 18 12 18 Rate Respiratory Rate [Abdomen] Blood Pressure Blood Pressure 149/99 161/96 152/94 [Left] O2 Sat by Pulse 96 95 95 Oximetry 04/08/18 04/08/18 04/08/18 08:00 08:19 08:25 Temperature 98.8 F Pulse Rate 82 82 83 Respiratory 21 Rate Respiratory 21 Rate [Abdomen] Blood Pressure 173/95 Blood Pressure 168/90 [Left] O2 Sat by Pulse 93 Oximetry 04/08/18 04/08/18 10:06 10:52 Temperature 98.3 F 98.3 F Pulse Rate 89 95 H Respiratory 18 20 Rate Respiratory Rate [Abdomen] Blood Pressure 139/84 Blood Pressure 139/84 [Left] O2 Sat by Pulse 93 93 Oximetry - Labs 04/08/18 08:43 04/08/18 08:43 Diabetes panel 04/07/18 04/08/18 Range/Units 16:51 08:43 Sodium 136 L 136 L (137-145) mmol/L Potassium 3.3 L 3.8 (3.6-5.0) mmol/L Chloride 89.5 L 98.5 (98-107) mmol/L Carbon Dioxide 27 24 (22-30) mmol/L BUN 19 16 (9-20) mg/dL Creatinine 0.9 0.8 (0.8-1.5) mg/dL Glucose 142 H 105 H (75-100) mg/dL Calcium 9.7 8.1 L D (8.4-10.2) mg/dL AST 48 H (5-40) units/L ALT 25 (7-56) units/L Alkaline Phosphatase 97 (35-129) units/L Total Protein 7.9 (6.3-8.2) g/dL Albumin 4.7 (3.9-5) g/dL Calcium panel 04/07/18 04/08/18 Range/Units 16:51 08:43 Calcium 9.7 8.1 L D (8.4-10.2) mg/dL Albumin 4.7 (3.9-5) g/dL Pituitary panel 04/07/18 04/08/18 Range/Units 16:51 08:43 Sodium 136 L 136 L (137-145) mmol/L Potassium 3.3 L 3.8 (3.6-5.0) mmol/L Chloride 89.5 L 98.5 (98-107) mmol/L Carbon Dioxide 27 24 (22-30) mmol/L BUN 19 16 (9-20) mg/dL Creatinine 0.9 0.8 (0.8-1.5) mg/dL Glucose 142 H 105 H (75-100) mg/dL Calcium 9.7 8.1 L D (8.4-10.2) mg/dL Adrenal panel 04/07/18 04/08/18 Range/Units 16:51 08:43 Sodium 136 L 136 L (137-145) mmol/L Potassium 3.3 L 3.8 (3.6-5.0) mmol/L Chloride 89.5 L 98.5 (98-107) mmol/L Carbon Dioxide 27 24 (22-30) mmol/L BUN 19 16 (9-20) mg/dL Creatinine 0.9 0.8 (0.8-1.5) mg/dL Glucose 142 H 105 H (75-100) mg/dL Calcium 9.7 8.1 L D (8.4-10.2) mg/dL Total Bilirubin 0.50 (0.1-1.2) mg/dL AST 48 H (5-40) units/L ALT 25 (7-56) units/L Alkaline Phosphatase 97 (35-129) units/L Total Protein 7.9 (6.3-8.2) g/dL Albumin 4.7 (3.9-5) g/dL
--- NOTE | 2018-04-08 16:09 | Progress Note ---
Assessment and Plan / SIRS (systemic inflammatory response syndrome) due to perforated gastric ulcer Iv antibiotic therapy, supportive care, / Perforated prepyloric ulcer CT ABdomen/pelvis with free air, surgery consulted in ED s/p exploratory laparotomy and sunitha patch of the perforated ulcer / Hypertensive urgency, malignant monitor uop q shift, IV hydralazine prn, continue medical management add clonidine path / Peritonitis (acute) generalized due to viscus perforation, cont abx, follow cx / Focal right common femoral artery dissection Vascular surgery consulted in ED, No emergent surgery planned / Nicotine dependence with withdrawal smoking cessation counseling, supportive care. / DVT prophylaxis SCD to BLE while in bed. Radiological data: CT abdomen/pelvis: Free intraperitoneal air and fluid. Non dependent air bubbles around the liver and anterior to the splenic flexure in the left upper quadrant. The most localized air bubbles appear to be around the region the distal gastric antrum and pylorus with air and fluid localized to this location. Findings are concerning for gastric or duodenal ulcer disease with perforation. Exam is motion degraded which limits the sensitivity. Multiple mildly prominent gastrohepatic ligament lymph nodes. Distal esophagus is incompletely imaged but extremely thick-walled. Bilateral adrenal hyperplasia. Subjective Date of service: 04/08/18 Interval history: pt seen and examined c/o abdominal pain, on NG suction NPO for now, explained and updated clinical status at bedside with RN Objective - Constitutional Vitals: Vital Signs - 12hr 04/08/18 04/08/18 04/08/18 05:00 06:00 08:00 Temperature 98.2 F Pulse Rate 88 82 82 Respiratory 12 18 Rate Respiratory Rate [Abdomen] Blood Pressure 173/95 Blood Pressure 161/96 152/94 [Left] O2 Sat by Pulse 95 95 Oximetry 04/08/18 04/08/18 04/08/18 08:19 08:25 10:06 Temperature 98.8 F 98.3 F Pulse Rate 82 83 89 Respiratory 21 18 Rate Respiratory 21 Rate [Abdomen] Blood Pressure 139/84 Blood Pressure 168/90 [Left] O2 Sat by Pulse 93 93 Oximetry 04/08/18 10:52 Temperature 98.3 F Pulse Rate 95 H Respiratory 20 Rate Respiratory Rate [Abdomen] Blood Pressure Blood Pressure 139/84 [Left] O2 Sat by Pulse 93 Oximetry General appearance: Present: no acute distress, well-nourished - EENT Eyes: PERRL, EOM intact ENT: hearing intact, clear oral mucosa Ears: bilateral: normal - Neck Neck: supple, normal ROM - Respiratory Respiratory effort: normal Respiratory: bilateral: CTA - Cardiovascular Rhythm: regular Heart Sounds: Present: S1 & S2. Absent: gallop, rub Extremities: pulses intact, No edema, normal color, Full ROM - Gastrointestinal General gastrointestinal: Present: soft, tender, non-distended, normal bowel sounds, other (surgical dressing) - Genitourinary Male genitourinary: normal - Integumentary Integumentary: clear, warm, dry - Musculoskeletal Musculoskeletal: 1, strength equal bilaterally - Neurologic Neurologic: moves all extremities - Psychiatric Psychiatric: memory intact, appropriate mood/affect, intact judgment & insight - Labs CBC & Chem 7: 04/09/18 04:25 04/09/18 04:25 Labs: Abnormal lab results 04/07/18 04/07/18 04/07/18 Range/Units 16:34 16:51 16:51 WBC 14.5 H (4.5-11.0) K/mm3 RBC 6.03 H (3.65-5.03) M/mm3 Hgb 17.1 H (11.8-15.2) gm/dl Hct 51.6 H (35.5-45.6) % Lymph % (Auto) 8.5 L (13.4-35.0) % Seg Neutrophils % 86.2 H (40.0-70.0) % Seg Neutrophils # 12.5 H (1.8-7.7) K/mm3 Sodium 136 L (137-145) mmol/L Potassium 3.3 L (3.6-5.0) mmol/L Chloride 89.5 L (98-107) mmol/L Glucose 142 H (75-100) mg/dL Calcium (8.4-10.2) mg/dL AST 48 H (5-40) units/L Ur Specific [place] 1.060 H (1.003-1.030) Urine WBC (Auto) 27.0 H (0.0-6.0) /HPF 04/08/18 04/08/18 Range/Units 08:43 08:43 WBC 19.7 H (4.5-11.0) K/mm3 RBC 5.52 H (3.65-5.03) M/mm3 Hgb 15.8 H (11.8-15.2) gm/dl Hct 47.1 H (35.5-45.6) % Lymph % (Auto) (13.4-35.0) % Seg Neutrophils % (40.0-70.0) % Seg Neutrophils # (1.8-7.7) K/mm3 Sodium 136 L (137-145) mmol/L Potassium (3.6-5.0) mmol/L Chloride (98-107) mmol/L Glucose 105 H (75-100) mg/dL Calcium 8.1 L D (8.4-10.2) mg/dL AST (5-40) units/L Ur Specific [place] (1.003-1.030) Urine WBC (Auto) (0.0-6.0) /HPF
[2018-04-08] MEDS: NORMODYNE IV PRN (23:30)
[2018-04-09] MEDS: ZOSYN/NS 4.5GM/100ML 4.5 GM/100 ML VIAL IV SCH ×3 (02:11→19:14)
[2018-04-09] MEDS: D5W/0.45% NACL/KCL 40 MEQ 40 MEQ/1,000 ML BAG IV SCH ×2 (04:01→15:40)
[2018-04-09 04:47] LABS: Basophils % (Auto) 0.2 % (0.0-1.8); Hematocrit 42.4 % (35.5-45.6); Hemoglobin 14.1 gm/dl (11.8-15.2); Lymphocytes # (Auto) 1.4 K/mm3 (1.2-5.4); Lymphocytes % (Auto) 10.2 % (13.4-35.0); Mean Corpuscular HGB Conc 33 % (32-34); Mean Corpuscular Hemoglobin 29 pg (28-32); Mean Corpuscular Volume 86 fl (84-94); Monocytes # (Auto) 1.5 K/mm3 (0.0-0.8); Monocytes % (Auto) 11.1 % (0.0-7.3); Platelet Count 218 K/mm3 (140-440); Red Blood Count 4.94 M/mm3 (3.65-5.03); Red Cell Distribution Width 14.9 % (13.2-15.2)
[2018-04-09 05:05] LABS: BUN/Creatinine Ratio 16; Blood Urea Nitrogen 13 mg/dL (9-20); Calcium 8.3 mg/dL (8.4-10.2); Hemolysis Index 0
[2018-04-09 06:55] LABS: Bilirubin,Urine NEG (Negative); Blood,Urine LG (Negative); Color,Urine Yellow (Yellow); Granular Casts,Urine 9 /LPF; Mucus,Urine FEW /HPF; Urobilinogen,Urine < 2.0 mg/dL (<2.0)
[2018-04-09 06:56] LABS: Hyaline Casts,Urine 10 /LPF; Protein,Urine 300 mg/dL mg/dL (Negative)
[2018-04-09] MEDS: PROTONIX IV SCH (09:06)
[2018-04-09] MEDS: APRESOLINE IV PRN (09:22)
[2018-04-09] MEDS ORDERED: CATAPRES-TTS PATCH TD SCH (10:00)
[2018-04-09] MEDS: SODIUM CHLORIDE FLUSH SYRINGE 10 ML IV SCH ×2 (10:00→22:00)
[2018-04-09] MEDS: DILAUDID PCA 6MG/30ML IV SCH (10:02)
[2018-04-09] MEDS: DIFLUCAN 200 MG/100 ML BAG IV SCH (10:07)
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
--- NOTE | 2018-04-09 13:11 | Progress Note ---
Assessment and Plan POD # 1 Pt overall feeling well Abd soft, dressing dry wbc down uncontrolled HTN ET nurse has begun local wd care ID eval pending surgically stable OOB as deborah Selected Entries 04/09/18 11:55 Temperature 98.4 F Pulse Rate 74 Blood Pressure 178/96 [Left] Laboratory Tests 04/08/18 04/09/18 04/09/18 08:43 04:25 04:25 WBC 19.7 H 13.2 H Hgb 14.1 Hct 42.4 Sodium 137 Potassium 3.9 Chloride 99.7 Carbon Dioxide 27 BUN 13 Creatinine 0.8 Objective Vital Signs - 12hr 04/09/18 04/09/18 04/09/18 04:15 09:00 09:11 Temperature 98.6 F 98.3 F Pulse Rate 64 67 Respiratory 20 18 18 Rate Blood Pressure 167/85 Blood Pressure 185/92 [Left] O2 Sat by Pulse 91 96 Oximetry 04/09/18 04/09/18 04/09/18 09:22 11:05 11:55 Temperature 98.4 F Pulse Rate 67 74 Respiratory 18 18 Rate Blood Pressure 185/92 Blood Pressure 178/96 [Left] O2 Sat by Pulse 95 Oximetry - Labs 04/09/18 04:25 04/09/18 04:25 Diabetes panel 04/09/18 Range/Units 04:25 Sodium 137 (137-145) mmol/L Potassium 3.9 (3.6-5.0) mmol/L Chloride 99.7 (98-107) mmol/L Carbon Dioxide 27 (22-30) mmol/L BUN 13 (9-20) mg/dL Creatinine 0.8 (0.8-1.5) mg/dL Glucose 121 H (75-100) mg/dL Calcium 8.3 L (8.4-10.2) mg/dL Calcium panel 04/09/18 Range/Units 04:25 Calcium 8.3 L (8.4-10.2) mg/dL Pituitary panel 04/09/18 Range/Units 04:25 Sodium 137 (137-145) mmol/L Potassium 3.9 (3.6-5.0) mmol/L Chloride 99.7 (98-107) mmol/L Carbon Dioxide 27 (22-30) mmol/L BUN 13 (9-20) mg/dL Creatinine 0.8 (0.8-1.5) mg/dL Glucose 121 H (75-100) mg/dL Calcium 8.3 L (8.4-10.2) mg/dL Adrenal panel 04/09/18 Range/Units 04:25 Sodium 137 (137-145) mmol/L Potassium 3.9 (3.6-5.0) mmol/L Chloride 99.7 (98-107) mmol/L Carbon Dioxide 27 (22-30) mmol/L BUN 13 (9-20) mg/dL Creatinine 0.8 (0.8-1.5) mg/dL Glucose 121 H (75-100) mg/dL Calcium 8.3 L (8.4-10.2) mg/dL
--- NOTE | 2018-04-09 13:24 | Consultation ---
History of Present Illness - Reason for Consult Consult date: 04/09/18 thom zepeda Requesting physician: JOHN STEVE - History of Present Illness 53 y/o male with history of HTN, GERD, Nicotine Dependence, Depression, Substance Abuse and chronic heartburn; admitted on 04/07/2019 due to acute severe right-sided abdominal pain, nausea, vomiting. Patient reports that he was having nausea, vomiting and epigastric abdominal pain which he felt was his chronic heartburn for 48 hours. On April 03, patient developed severe right sided abdominal pain which made him fall to the ground and became unconscious for several seconds. A friend took him to the emergency room. Denies diarrhea or urinary symptoms. In the ED, initial temperature was 97.9, heart rate 76, blood pressure 184/112, white count 14.5, hemoglobin 17, platelets 325. Creatinine 0.9. Sodium 136. Urinalysis showed small leukocyte esterase and 27 white blood cells. Lactate 1.9. AST 48. CT of the abdomen show free air with her level fluid collection at the antrum of the stomach, multiple lymphadenopathies, focal dissected right , femoral artery. She was taken to the operating room on 04/07/2018 underwent exploratory laparotomy with repair of stomach perforation. Microbiology: Peritoneal cultures: 04/07 ngtd Current Antimicrobials: Zosyn Fluconazole Previous Antimicrobials: Past History Past Medical History: GERD, hypertension, other (Depression) Past Surgical History: hernia repair, Other (eye surgery) Social history: smoking, other (Cocaine use, ) Medications and Allergies Allergies Allergy/AdvReac Type Severity Reaction Status Date / Time No Known Allergies Allergy Unverified 04/07/18 16:33 Active Meds: Active Medications Acetaminophen (Tylenol) 650 mg PO Q4H PRN PRN Reason: Pain MILD(1-3)/Fever >100.5/DEL CID Clonidine HCl (Catapres-Tts Patch) 0.2 mg TD Mo@1000 LUZ Last Admin: 04/09/18 09:22 Dose: 0.2 mg Fentanyl (Sublimaze) 50 mcg IV Q20M PRN PRN Reason: Pain , Severe (7-10) Last Admin: 04/07/18 23:40 Dose: 50 mcg Hydromorphone/Sodium Chloride (Dilaudid [employer]'S Aide 6mg/30ml) 0 mg IV DIRECT LUZ; Protocol Last Admin: 04/09/18 10:02 Dose: 1 cartstart Hydrophilic Ointment (Vaseline Lip Therapy) 1 applic TP Q2HR PRN PRN Reason: Dry Lips Piperacillin Sod/Tazobactam Sod (Zosyn/Ns 4.5gm/100ml) 4.5 gm in 100 mls @ 200 mls/hr IV Q8H LUZ; Protocol Last Admin: 04/09/18 09:07 Dose: 200 mls/hr Fluconazole (Diflucan) 200 mg in 100 mls @ 100 mls/hr IV Q24HR LUZ; Protocol Last Admin: 04/09/18 10:07 Dose: 100 mls/hr Propofol (Diprivan 10 Mg/Ml) 1,000 mg in 100 mls @ 2.654 mls/hr IV TITR LUZ; Protocol Last Admin: 04/07/18 21:45 Dose: Not Given Potassium Chloride/Dextrose/Sod Cl (D5w/0.45% Nacl/Kcl 40 Meq) 40 meq in 1,000 mls @ 125 mls/hr IV DIRECT LUZ Last Admin: 04/09/18 04:01 Dose: 125 mls/hr Labetalol HCl (Normodyne) 5 mg IV Q20M PRN PRN Reason: Hypertension Last Admin: 04/08/18 23:30 Dose: 5 mg Naloxone HCl (Narcan 0.4 Mg/1 Ml) 0.1 mg IV Q2MIN PRN PRN Reason: Res Rate </= 8 or 02 SAT < 92% Ondansetron HCl (Zofran) 4 mg IV Q8H PRN PRN Reason: Nausea And Vomiting Pantoprazole Sodium (Protonix) 40 mg IV DAILY [facility] Stop: 04/12/18 21:59 Last Admin: 04/09/18 09:06 Dose: 40 mg Phenol (Chloraseptic) 1 spray MM PRN PRN PRN Reason: Sore Throat Sodium Chloride (Sodium Chloride Flush Syringe 10 Ml) 10 ml IV BID LUZ Last Admin: 04/08/18 22:50 Dose: 10 ml Sodium Chloride (Sodium Chloride Flush Syringe 10 Ml) 10 ml IV PRN PRN PRN Reason: LINE FLUSH Review of Systems All systems: negative (as per HPI) Physical Examination - Physical Exam Narrative exam: General appearance: Alert in NAD, conversant Eyes: anicteric sclerae, moist conjunctivae; no lid-lag; PERRLA HENT: Atraumatic; oropharynx clear poor dentition Neck: Trachea midline; supple, no thyromegaly or lymphadenopathy Lungs: CTA, with normal respiratory effort and no intercostal retractions CV: RRR, no murmurs Abdomen: Soft, mild tenderness, midline surg wound w dressings Extremities: No peripheral edema or extremity lymphadenopathy Skin: Normal temperature, turgor and texture; no rash, ulcers or subcutaneous nodules Psych: Appropriate affect, alert and oriented to person, place and time. Neuro: alert and oriented x 3. Moving all extermities Lines: No CVL / PICC - Constitutional Vitals: Vital Signs Temp Pulse Resp BP Pulse Ox 98.4 F 74 18 178/96 95 04/09/18 11:55 04/09/18 11:55 04/09/18 11:55 04/09/18 11:55 04/09/18 11:55 Temperature -Last 24 Hours Temperature 98.4 F Temperature 98.3 F Temperature 98.6 F Temperature 98.6 F Temperature 98.3 F Temperature 98.7 F Results - Labs CBC & Chem 7: 04/09/18 04:25 04/09/18 04:25 Labs: Abnormal lab results 04/09/18 04/09/18 04/09/18 Range/Units 04:25 04:25 05:28 WBC 13.2 H (4.5-11.0) K/mm3 Lymph % (Auto) 10.2 L (13.4-35.0) % Parke % (Auto) 11.1 H (0.0-7.3) % Parke # 1.5 H (0.0-0.8) K/mm3 Seg Neutrophils % 78.5 H (40.0-70.0) % Seg Neutrophils # 10.4 H (1.8-7.7) K/mm3 Glucose 121 H (75-100) mg/dL Calcium 8.3 L (8.4-10.2) mg/dL Ur Specific [place] 1.031 H (1.003-1.030) Urine WBC (Auto) 31.0 H (0.0-6.0) /HPF Assessment and Plan Assessment: 1) Leukocytosis: Present on admission. Etiology most likely - acute peritonitis. 2) Acute peritonitis: from gastric perforation -CT of the abdomen show free air with her level fluid collection at the antrum of the stomach, multiple lymphadenopathies, focal dissected right, femoral artery. -S/P operating room on 04/07/2018 underwent exploratory laparotomy with repair of stomach perforation. -Peritoneal cx no growth so far 3) HTN 4) GERD 5) Nicotine Dependence 6) Depression 7) Substance Abuse 8) UTI: likely reactive 9) Elevated LFTs; likely from perf Plan: -follow-up peritoneal cx -continue zosyn and fluconazole for now -monitor leukocytosis -upon diascharge will do po abx -check CRP, HIV and viral hep panel Thank you for your consultation, will follow up with you. Harika Duncan MD Infectious Diseases Specialist [facility] ([facility] M [phone] O [phone]
[2018-04-09 14:56] LABS: Hepatitis A Antibody IgM Non-Reactive (NonReactive); Hepatitis B Core IgM Non-Reactive (NonReactive); Hepatitis B Surface Antigen Non-Reactive (Negative); Hepatitis C Virus Antibody Non-Reactive (NonReactive)
--- NOTE | 2018-04-09 15:28 | Progress Note ---
Assessment and Plan / SIRS (systemic inflammatory response syndrome) due to perforated gastric ulcer Iv antibiotic therapy, supportive care, / Perforated prepyloric ulcer CT ABdomen/pelvis with free air, surgery consulted in ED s/p exploratory laparotomy and sunitha patch of the perforated ulcer / Hypertensive urgency, malignant monitor uop q shift, IV hydralazine prn, continue medical management add clonidine path / Peritonitis (acute) generalized due to viscus perforation, cont abx, follow cx / Focal right common femoral artery dissection Vascular surgery consulted in ED, No emergent surgery planned / Nicotine dependence with withdrawal smoking cessation counseling, supportive care. / DVT prophylaxis SCD to BLE while in bed. Radiological data: CT abdomen/pelvis: Free intraperitoneal air and fluid. Non dependent air bubbles around the liver and anterior to the splenic flexure in the left upper quadrant. The most localized air bubbles appear to be around the region the distal gastric antrum and pylorus with air and fluid localized to this location. Findings are concerning for gastric or duodenal ulcer disease with perforation. Exam is motion degraded which limits the sensitivity. Multiple mildly prominent gastrohepatic ligament lymph nodes. Distal esophagus is incompletely imaged but extremely thick-walled. Bilateral adrenal hyperplasia. Physical exam: General appearance: Present: no acute distress, well-nourished - EENT Eyes: PERRL, EOM intact ENT: hearing intact, clear oral mucosa Ears: bilateral: normal - Neck Neck: supple, normal ROM - Respiratory Respiratory effort: normal Respiratory: bilateral: CTA - Cardiovascular Rhythm: regular Heart Sounds: Present: S1 & S2. Absent: gallop, rub Extremities: pulses intact, No edema, normal color, Full ROM - Gastrointestinal General gastrointestinal: Present: soft, tender, non-distended, normal bowel sounds, other (surgical dressing) - Genitourinary Male genitourinary: normal - Integumentary Integumentary: clear, warm, dry - Musculoskeletal Musculoskeletal: 1, strength equal bilaterally - Neurologic Neurologic: moves all extremities - Psychiatric Psychiatric: memory intact, appropriate mood/affect, intact judgment & insight Subjective Date of service: 04/09/18 Interval history: pt seen and examined c/o abdominal pain, on NG suction NPO for now, explained and updated clinical status at bedside with RN Objective - Constitutional Vitals: Vital Signs - 12hr 04/09/18 04/09/18 04/09/18 04:15 09:00 09:11 Temperature 98.6 F 98.3 F Pulse Rate 64 67 Respiratory 20 18 18 Rate Blood Pressure 167/85 Blood Pressure 185/92 [Left] O2 Sat by Pulse 91 96 Oximetry 04/09/18 04/09/18 04/09/18 09:22 11:05 11:55 Temperature 98.4 F Pulse Rate 67 74 Respiratory 18 18 Rate Blood Pressure 185/92 Blood Pressure 178/96 [Left] O2 Sat by Pulse 95 Oximetry 04/09/18 15:24 Temperature 99.0 F Pulse Rate 81 Respiratory 18 Rate Blood Pressure Blood Pressure 169/88 [Left] O2 Sat by Pulse 96 Oximetry - Labs CBC & Chem 7: 04/10/18 04:05 04/10/18 04:05 Labs: Abnormal lab results 04/09/18 04/09/18 04/09/18 Range/Units 04:25 04:25 05:28 WBC 13.2 H (4.5-11.0) K/mm3 Lymph % (Auto) 10.2 L (13.4-35.0) % Sanders % (Auto) 11.1 H (0.0-7.3) % Sanders # 1.5 H (0.0-0.8) K/mm3 Seg Neutrophils % 78.5 H (40.0-70.0) % Seg Neutrophils # 10.4 H (1.8-7.7) K/mm3 Glucose 121 H (75-100) mg/dL Calcium 8.3 L (8.4-10.2) mg/dL C-Reactive Protein (0.00-1.30) mg/dL Ur Specific [place] 1.031 H (1.003-1.030) Urine WBC (Auto) 31.0 H (0.0-6.0) /HPF 04/09/18 Range/Units 14:04 WBC (4.5-11.0) K/mm3 Lymph % (Auto) (13.4-35.0) % Sanders % (Auto) (0.0-7.3) % Sanders # (0.0-0.8) K/mm3 Seg Neutrophils % (40.0-70.0) % Seg Neutrophils # (1.8-7.7) K/mm3 Glucose (75-100) mg/dL Calcium (8.4-10.2) mg/dL C-Reactive Protein 23.40 H (0.00-1.30) mg/dL Ur Specific [place] (1.003-1.030) Urine WBC (Auto) (0.0-6.0) /HPF
[2018-04-09] MEDS: NORMODYNE IV PRN ×2 (21:05→22:40)
[2018-04-10] MEDS: ZOSYN/NS 4.5GM/100ML 4.5 GM/100 ML VIAL IV SCH ×2 (01:36→10:29)
[2018-04-10] MEDS: APRESOLINE IV PRN ×2 (05:03→20:14)
[2018-04-10 05:24] LABS: Basophils # (Auto) 0.1 K/mm3 (0.0-0.1); Basophils % (Auto) 0.5 % (0.0-1.8); Eosinophils % (Auto) 0.4 % (0.0-4.3); Hematocrit 40.9 % (35.5-45.6); Hemoglobin 13.6 gm/dl (11.8-15.2); Lymphocytes # (Auto) 1.5 K/mm3 (1.2-5.4); Lymphocytes % (Auto) 14.1 % (13.4-35.0); Mean Corpuscular HGB Conc 33 % (32-34); Mean Corpuscular Hemoglobin 29 pg (28-32); Mean Corpuscular Volume 87 fl (84-94); Monocytes % (Auto) 9.3 % (0.0-7.3); Platelet Count 206 K/mm3 (140-440); Red Cell Distribution Width 14.9 % (13.2-15.2)
[2018-04-10 05:47] LABS: BUN/Creatinine Ratio 17; Blood Urea Nitrogen 12 mg/dL (9-20); Calcium 8.6 mg/dL (8.4-10.2); Hemolysis Index 4
[2018-04-10] MEDS: D5W/0.45% NACL/KCL 40 MEQ 40 MEQ/1,000 ML BAG IV SCH ×2 (06:09→18:13)
[2018-04-10] MEDS: SODIUM CHLORIDE FLUSH SYRINGE 10 ML IV SCH ×2 (10:00→22:47)
[2018-04-10] MEDS: DILAUDID PCA 6MG/30ML IV SCH (10:26)
[2018-04-10] MEDS: PROTONIX IV SCH (10:30)
[2018-04-10] MEDS: DIFLUCAN 200 MG/100 ML BAG IV SCH (10:30)
--- NOTE | 2018-04-10 11:21 | Progress Note ---
Assessment and Plan Assessment: 1) Leukocytosis: resolved. Etiology most likely - acute peritonitis. 2) Acute peritonitis: from gastric perforation -CT of the abdomen show free air with her level fluid collection at the antrum of the stomach, multiple lymphadenopathies, focal dissected right, femoral artery. -S/P operating room on 04/07/2018 underwent exploratory laparotomy with repair of stomach perforation. -Peritoneal cx +normal skin anika -CRP=23 3) HTN 4) GERD 5) Nicotine Dependence 6) Depression 7) Substance Abuse 8) UTI: likely reactive 9) Elevated LFTs; likely from perf. Viral hep panel negative. HIV neg. Plan: -stop zosyn and fluconazole -start unasyn -upon discharge will do levaquin 750 mg po qday and flagyl 500 mg po TID total 14 days until 04/20 -pt is afraid of IV line infection. If he needs to be NPO consider a midline Thank you for your consultation, will follow up with you. Harika Duncan MD Infectious Diseases Specialist [facility] ([facility] M [phone] O [phone] Subjective Date of service: 04/10/18 Principal diagnosis: peritonitis Interval history: Feels better, no fever, mild abd pain. Microbiology: Peritoneal cultures: 04/07 usual skin anika Current Antimicrobials: Zosyn Fluconazole Previous Antimicro Objective - Exam Narrative Exam: General appearance: Alert in NAD, conversant Eyes: anicteric sclerae, moist conjunctivae; no lid-lag; PERRLA HENT: Atraumatic; oropharynx clear poor dentition Neck: Trachea midline; supple, no thyromegaly or lymphadenopathy Lungs: CTA, with normal respiratory effort and no intercostal retractions CV: RRR, no murmurs Abdomen: Soft, mild tenderness, midline surg wound w dressings Extremities: No peripheral edema or extremity lymphadenopathy Skin: Normal temperature, turgor and texture; no rash, ulcers or subcutaneous nodules Psych: Appropriate affect, alert and oriented to person, place and time. Neuro: alert and oriented x 3. Moving all extermities Lines: No CVL / PICC - Constitutional Vitals: Vital Signs Temp Pulse Resp BP Pulse Ox 98.7 F 65 18 166/85 94 04/10/18 07:22 04/10/18 07:22 04/10/18 07:22 04/10/18 07:22 04/10/18 07:22 Temperature -Last 24 Hours Temperature 98.7 F Temperature 98.5 F Temperature 98.8 F Temperature 99.1 F Temperature 99.0 F Temperature 98.4 F - Labs CBC & Chem 7: 04/10/18 04:05 04/10/18 04:05 Labs: Abnormal lab results 04/09/18 04/10/18 04/10/18 Range/Units 14:04 04:05 04:05 Hill % (Auto) 9.3 H (0.0-7.3) % [place] # 1.0 H (0.0-0.8) K/mm3 Seg Neutrophils % 75.7 H (40.0-70.0) % Seg Neutrophils # 8.2 H (1.8-7.7) K/mm3 Creatinine 0.7 L (0.8-1.5) mg/dL C-Reactive Protein 23.40 H (0.00-1.30) mg/dL
[2018-04-10] MEDS: VASOTEC IV SCH ×4 (11:39→23:05)
[2018-04-10] MEDS ORDERED: UNASYN/NS 3 GM/100 ML 3 GM/100 ML BAG IV SCH (12:00)
--- NOTE | 2018-04-10 13:21 | Progress Note ---
Assessment and Plan POD # 2 Pt continues to feel better. neg flatus Abd soft. neg BS wbc down surgically stable -- improving continue present care Selected Entries 04/10/18 04/10/18 11:19 11:39 Temperature 98.5 F Pulse Rate 74 Respiratory 18 Rate Blood Pressure 166/89 Laboratory Tests 04/10/18 04:05 WBC 10.8 Hgb 13.6 Hct 40.9 Objective Vital Signs - 12hr 04/10/18 04/10/18 04/10/18 01:27 02:02 04:02 Temperature 98.8 F Pulse Rate 67 Respiratory 20 18 20 Rate Blood Pressure 168/88 O2 Sat by Pulse 95 Oximetry 04/10/18 04/10/18 04/10/18 04:18 05:03 06:02 Temperature 98.5 F Pulse Rate 68 69 Respiratory 20 18 Rate Blood Pressure 182/93 182/93 O2 Sat by Pulse 96 Oximetry 04/10/18 04/10/18 04/10/18 07:22 11:19 11:39 Temperature 98.7 F 98.5 F Pulse Rate 65 74 Respiratory 18 18 Rate Blood Pressure 166/85 166/89 166/89 O2 Sat by Pulse 94 96 Oximetry - Labs 04/10/18 04:05 04/10/18 04:05 Diabetes panel 04/10/18 Range/Units 04:05 Sodium 141 (137-145) mmol/L Potassium 4.0 (3.6-5.0) mmol/L Chloride 102.9 (98-107) mmol/L Carbon Dioxide 26 (22-30) mmol/L BUN 12 (9-20) mg/dL Creatinine 0.7 L (0.8-1.5) mg/dL Glucose 97 (75-100) mg/dL Calcium 8.6 (8.4-10.2) mg/dL Calcium panel 04/10/18 Range/Units 04:05 Calcium 8.6 (8.4-10.2) mg/dL Pituitary panel 04/10/18 Range/Units 04:05 Sodium 141 (137-145) mmol/L Potassium 4.0 (3.6-5.0) mmol/L Chloride 102.9 (98-107) mmol/L Carbon Dioxide 26 (22-30) mmol/L BUN 12 (9-20) mg/dL Creatinine 0.7 L (0.8-1.5) mg/dL Glucose 97 (75-100) mg/dL Calcium 8.6 (8.4-10.2) mg/dL Adrenal panel 04/10/18 Range/Units 04:05 Sodium 141 (137-145) mmol/L Potassium 4.0 (3.6-5.0) mmol/L Chloride 102.9 (98-107) mmol/L Carbon Dioxide 26 (22-30) mmol/L BUN 12 (9-20) mg/dL Creatinine 0.7 L (0.8-1.5) mg/dL Glucose 97 (75-100) mg/dL Calcium 8.6 (8.4-10.2) mg/dL
--- NOTE | 2018-04-10 16:39 | Progress Note ---
Assessment and Plan / SIRS (systemic inflammatory response syndrome) due to perforated gastric ulcer Iv antibiotic therapy per ID, supportive care, / Peritonitis (acute) generalized due to viscus perforation, cont abx, follow cx / Perforated prepyloric/gastric ulcer CT ABdomen/pelvis with free air, surgery consulted in ED s/p exploratory laparotomy and sunitha patch of the perforated ulcer Post op Mx per surgery / Hypertensive urgency, malignant monitor uop q shift, IV hydralazine prn, continue medical management cont clonidine path and vasotec IV / Focal right common femoral artery dissection Vascular surgery consulted in ED, No emergent surgery planned / Nicotine dependence with withdrawal smoking cessation counseling, supportive care. / DVT prophylaxis SCD to BLE while in bed. Radiological data: CT abdomen/pelvis: Free intraperitoneal air and fluid. Non dependent air bubbles around the liver and anterior to the splenic flexure in the left upper quadrant. The most localized air bubbles appear to be around the region the distal gastric antrum and pylorus with air and fluid localized to this location. Findings are concerning for gastric or duodenal ulcer disease with perforation. Exam is motion degraded which limits the sensitivity. Multiple mildly prominent gastrohepatic ligament lymph nodes. Distal esophagus is incompletely imaged but extremely thick-walled. Bilateral adrenal hyperplasia. Physical exam: General appearance: Present: no acute distress, well-nourished - EENT Eyes: PERRL, EOM intact ENT: hearing intact, clear oral mucosa Ears: bilateral: normal - Neck Neck: supple, normal ROM - Respiratory Respiratory effort: normal Respiratory: bilateral: CTA - Cardiovascular Rhythm: regular Heart Sounds: Present: S1 & S2. Absent: gallop, rub Extremities: pulses intact, No edema, normal color, Full ROM - Gastrointestinal General gastrointestinal: Present: soft, tender, non-distended, normal bowel sounds, other (surgical dressing) - Genitourinary Male genitourinary: normal - Integumentary Integumentary: clear, warm, dry - Musculoskeletal Musculoskeletal: 1, strength equal bilaterally - Neurologic Neurologic: moves all extremities - Psychiatric Psychiatric: memory intact, appropriate mood/affect, intact judgment & insight Subjective Date of service: 04/10/18 Principal diagnosis: peritonitis Interval history: pt seen and examined Improved abdominal pain, on NG suction Ambulated today, No flatus or BM yet NPO for now, explained and updated clinical status at bedside with RN Objective - Constitutional Vitals: Vital Signs - 12hr 04/10/18 04/10/18 04/10/18 05:03 06:02 07:22 Temperature 98.7 F Pulse Rate 69 65 Respiratory 18 18 Rate Blood Pressure 182/93 166/85 O2 Sat by Pulse 94 Oximetry 04/10/18 04/10/18 04/10/18 11:19 11:39 15:53 Temperature 98.5 F 99.3 F Pulse Rate 74 77 Respiratory 18 18 Rate Blood Pressure 166/89 166/89 165/90 O2 Sat by Pulse 96 96 Oximetry - Labs CBC & Chem 7: 04/10/18 04:05 04/10/18 04:05 Labs: Abnormal lab results 04/10/18 04/10/18 Range/Units 04:05 04:05 Barron % (Auto) 9.3 H (0.0-7.3) % [place] # 1.0 H (0.0-0.8) K/mm3 Seg Neutrophils % 75.7 H (40.0-70.0) % Seg Neutrophils # 8.2 H (1.8-7.7) K/mm3 Creatinine 0.7 L (0.8-1.5) mg/dL
[2018-04-10] MEDS: UNASYN/NS 3 GM/100 ML 3 GM/100 ML BAG IV SCH ×2 (18:23→23:04)
[2018-04-10] MEDS: LOVENOX SUB-Q SCH (22:47)
[2018-04-11] MEDS: APRESOLINE IV PRN ×3 (04:55→23:12)
[2018-04-11] MEDS: D5W/0.45% NACL/KCL 40 MEQ 40 MEQ/1,000 ML BAG IV SCH ×2 (05:57→23:20)
[2018-04-11] MEDS: VASOTEC IV SCH ×3 (05:58→18:17)
[2018-04-11] MEDS: UNASYN/NS 3 GM/100 ML 3 GM/100 ML BAG IV SCH ×4 (05:59→23:24)
--- NOTE | 2018-04-11 09:58 | Progress Note ---
Assessment and Plan Assessment: 1) Leukocytosis: resolved. Etiology most likely - acute peritonitis. 2) Acute peritonitis: from gastric perforation -CT of the abdomen show free air with her level fluid collection at the antrum of the stomach, multiple lymphadenopathies, focal dissected right, femoral artery. -S/P operating room on 04/07/2018 underwent exploratory laparotomy with repair of stomach perforation. -Peritoneal cx +normal skin anika -CRP=23 3) HTN 4) GERD 5) Nicotine Dependence 6) Depression 7) Substance Abuse 8) UTI: likely reactive 9) Elevated LFTs; likely from perf. Viral hep panel negative. HIV neg. Plan: -continue unasyn for now -upon discharge will do levaquin 750 mg po qday and flagyl 500 mg po TID total 14 days until 04/20 -pt wants NGT out and wants to eat I am rounding on 04/13 Thank you for your consultation, will follow up with you. Harika Duncan MD Infectious Diseases Specialist [facility] ([facility] M [phone] O [phone] Subjective Date of service: 04/11/18 Principal diagnosis: peritonitis Interval history: Feels better, no fever, no abd pain. He wants to eat. C/o sore throat from NGT irritation Microbiology: Peritoneal cultures: 04/07 usual skin anika Current Antimicrobials: unasyn 04/10 Previous Antimicro Zosyn Fluconazole Objective - Exam Narrative Exam: General appearance: Alert in NAD, conversant Eyes: anicteric sclerae, moist conjunctivae; no lid-lag; PERRLA HENT: Atraumatic; oropharynx clear poor dentition +NGT Neck: Trachea midline; supple, no thyromegaly or lymphadenopathy Lungs: CTA, with normal respiratory effort and no intercostal retractions CV: RRR, no murmurs Abdomen: Soft, mild tenderness, midline surg wound w dressings Extremities: No peripheral edema or extremity lymphadenopathy Skin: Normal temperature, turgor and texture; no rash, ulcers or subcutaneous nodules Psych: Appropriate affect, alert and oriented to person, place and time. Neuro: alert and oriented x 3. Moving all extermities Lines: No CVL / PICC - Constitutional Vitals: Vital Signs Temp Pulse Resp BP Pulse Ox 98.5 F 85 20 167/92 97 04/11/18 07:35 04/11/18 07:35 04/11/18 07:35 04/11/18 07:35 04/11/18 08:24 Temperature -Last 24 Hours Temperature 98.5 F Temperature 99.3 F Temperature 98.2 F Temperature 99.2 F Temperature 99.3 F Temperature 98.5 F - Labs CBC & Chem 7: 04/10/18 04:05 04/10/18 04:05
[2018-04-11] MEDS: PROTONIX IV SCH (10:06)
[2018-04-11] MEDS: SODIUM CHLORIDE FLUSH SYRINGE 10 ML IV SCH ×2 (10:07→23:00)
--- NOTE | 2018-04-11 12:58 | Progress Note ---
Assessment and Plan / SIRS (systemic inflammatory response syndrome) due to perforated gastric ulcer Iv antibiotic therapy per ID, supportive care, / Peritonitis (acute) generalized due to viscus perforation, cont abx, follow cx / Perforated prepyloric/gastric ulcer CT ABdomen/pelvis with free air, surgery consulted in ED s/p exploratory laparotomy and sunitha patch of the perforated ulcer Post op Mx per surgery, off NG tube today / Hypertensive urgency, malignant monitor uop q shift, IV hydralazine prn, continue medical management cont clonidine path and vasotec IV / Focal right common femoral artery dissection Vascular surgery consulted in ED, No emergent surgery planned / Nicotine dependence with withdrawal smoking cessation counseling, supportive care. / DVT prophylaxis SCD to BLE while in bed. Radiological data: CT abdomen/pelvis: Free intraperitoneal air and fluid. Non dependent air bubbles around the liver and anterior to the splenic flexure in the left upper quadrant. The most localized air bubbles appear to be around the region the distal gastric antrum and pylorus with air and fluid localized to this location. Findings are concerning for gastric or duodenal ulcer disease with perforation. Exam is motion degraded which limits the sensitivity. Multiple mildly prominent gastrohepatic ligament lymph nodes. Distal esophagus is incompletely imaged but extremely thick-walled. Bilateral adrenal hyperplasia. Physical exam: General appearance: Present: no acute distress, well-nourished - EENT Eyes: PERRL, EOM intact ENT: hearing intact, clear oral mucosa Ears: bilateral: normal - Neck Neck: supple, normal ROM - Respiratory Respiratory effort: normal Respiratory: bilateral: CTA - Cardiovascular Rhythm: regular Heart Sounds: Present: S1 & S2. Absent: gallop, rub Extremities: pulses intact, No edema, normal color, Full ROM - Gastrointestinal General gastrointestinal: Present: soft, tender, non-distended, normal bowel sounds, other (surgical dressing) - Genitourinary Male genitourinary: normal - Integumentary Integumentary: clear, warm, dry - Musculoskeletal Musculoskeletal: 1, strength equal bilaterally - Neurologic Neurologic: moves all extremities - Psychiatric Psychiatric: memory intact, appropriate mood/affect, intact judgment & insight Subjective Date of service: 04/11/18 Principal diagnosis: peritonitis Interval history: pt seen and examined Improved abdominal pain, on NG suction Ambulating, + flatus and BM NPO for now for next 24h, off NG today explained and updated clinical status at bedside with RN Objective - Constitutional Vitals: Vital Signs - 12hr 04/11/18 04/11/18 04/11/18 02:26 04:02 04:26 Temperature 99.3 F Pulse Rate 80 Respiratory 20 20 20 Rate Blood Pressure 182/106 Blood Pressure [Left] O2 Sat by Pulse 92 Oximetry 04/11/18 04/11/18 04/11/18 04:55 05:58 07:35 Temperature 98.5 F Pulse Rate 84 85 Respiratory 20 Rate Blood Pressure 182/106 169/99 Blood Pressure 167/92 [Left] O2 Sat by Pulse 97 Oximetry 04/11/18 04/11/18 04/11/18 08:24 11:00 12:39 Temperature 98.3 F Pulse Rate 67 69 Respiratory 20 Rate Blood Pressure 185/94 Blood Pressure 176/90 [Left] O2 Sat by Pulse 97 94 Oximetry - Labs CBC & Chem 7: 04/10/18 04:05 04/10/18 04:05
--- NOTE | 2018-04-11 13:26 | Progress Note ---
Assessment and Plan POD #3 Pt feeling better. + flatus Abd soft. non tender. +BS surgically stable d/c ng observation keep npo possible cl liq in am if no abd distention 24hrs post ng removal Selected Entries 04/11/18 04/11/18 11:00 12:39 Temperature 98.3 F Pulse Rate 69 Respiratory 20 Rate Blood Pressure 185/94 Objective Vital Signs - 12hr 04/11/18 04/11/18 04/11/18 02:26 04:02 04:26 Temperature 99.3 F Pulse Rate 80 Respiratory 20 20 20 Rate Blood Pressure 182/106 Blood Pressure [Left] O2 Sat by Pulse 92 Oximetry 04/11/18 04/11/18 04/11/18 04:55 05:58 07:35 Temperature 98.5 F Pulse Rate 84 85 Respiratory 20 Rate Blood Pressure 182/106 169/99 Blood Pressure 167/92 [Left] O2 Sat by Pulse 97 Oximetry 04/11/18 04/11/18 04/11/18 08:24 11:00 12:39 Temperature 98.3 F Pulse Rate 67 69 Respiratory 20 Rate Blood Pressure 185/94 Blood Pressure 176/90 [Left] O2 Sat by Pulse 97 94 Oximetry - Labs 04/10/18 04:05 04/10/18 04:05
[2018-04-11] MEDS: LOVENOX SUB-Q SCH (22:54)
[2018-04-12] MEDS: VASOTEC IV SCH ×2 (00:44→05:12)
[2018-04-12] MEDS: UNASYN/NS 3 GM/100 ML 3 GM/100 ML BAG IV SCH ×3 (05:10→18:05)
[2018-04-12] MEDS: DILAUDID PCA 6MG/30ML IV SCH (06:30)
--- NOTE | 2018-04-12 07:50 | Progress Note ---
Assessment and Plan POD #4 Pt feeling well without compl. deborah d/c of ng. +BM Abd soft, non tender stable attempt cl liq diet no carbonated Selected Entries 04/12/18 05:18 Temperature 98.5 F Pulse Rate 74 Respiratory 17 Rate Blood Pressure 185/95 [Left] Objective Vital Signs - 12hr 04/11/18 04/11/18 04/11/18 22:32 23:12 23:16 Temperature 98.6 F Pulse Rate 80 Respiratory 18 Rate Blood Pressure 174/105 Blood Pressure 174/105 [Left] O2 Sat by Pulse 99 96 Oximetry 04/12/18 04/12/18 04/12/18 00:44 00:57 05:12 Temperature Pulse Rate 86 95 H 74 Respiratory Rate Blood Pressure 178/109 185/95 Blood Pressure [Left] O2 Sat by Pulse Oximetry 04/12/18 05:18 Temperature 98.5 F Pulse Rate 74 Respiratory 17 Rate Blood Pressure Blood Pressure 185/95 [Left] O2 Sat by Pulse 95 Oximetry - Labs 04/10/18 04:05 04/10/18 04:05
[2018-04-12] MEDS: PROTONIX IV SCH ×2 (08:30→10:00)
[2018-04-12] MEDS: NORCO 5/325 PO PRN ×3 (08:30→18:14)
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
[2018-04-12] MEDS: SODIUM CHLORIDE FLUSH SYRINGE 10 ML IV SCH ×2 (10:00→21:36)
[2018-04-12] MEDS: APRESOLINE PO SCH ×2 (12:55→21:36)
[2018-04-12] MEDS: NORVASC PO SCH (12:55)
--- NOTE | 2018-04-12 13:52 | Progress Note ---
Assessment and Plan / SIRS (systemic inflammatory response syndrome) due to perforated gastric ulcer Iv antibiotic therapy per ID, supportive care, On discharge will need levaquin 750 mg po qday and flagyl 500 mg po TID total 14 days until 04/20 / Peritonitis (acute) generalized due to viscus perforation, cont abx, cx grew skin anika upon discharge will need levaquin 750 mg po qday and flagyl 500 mg po TID total 14 days until 04/20 - per ID recommendation / Perforated prepyloric/gastric ulcer CT ABdomen/pelvis with free air, surgery consulted in ED s/p exploratory laparotomy and sunitha patch of the perforated ulcer Post op Mx per surgery, off NG tube now, off CLIENT SUPPORT MANAGER pump, started on clear liquid diet Plan for EGD outpt after 6 weeks / Hypertensive urgency, malignant monitor BP q shift, IV hydralazine prn, continue medical management cont clonidine path and start on norvasc and hydralazine po / Focal right common femoral artery dissection Vascular surgery consulted in ED, No emergent surgery planned / Nicotine dependence with withdrawal smoking cessation counseling, supportive care. / DVT prophylaxis SCD to BLE while in bed. Radiological data: CT abdomen/pelvis: Free intraperitoneal air and fluid. Non dependent air bubbles around the liver and anterior to the splenic flexure in the left upper quadrant. The most localized air bubbles appear to be around the region the distal gastric antrum and pylorus with air and fluid localized to this location. Findings are concerning for gastric or duodenal ulcer disease with perforation. Exam is motion degraded which limits the sensitivity. Multiple mildly prominent gastrohepatic ligament lymph nodes. Distal esophagus is incompletely imaged but extremely thick-walled. Bilateral adrenal hyperplasia. Physical exam: General appearance: Present: no acute distress, well-nourished - EENT Eyes: PERRL, EOM intact ENT: hearing intact, clear oral mucosa Ears: bilateral: normal - Neck Neck: supple, normal ROM - Respiratory Respiratory effort: normal Respiratory: bilateral: CTA - Cardiovascular Rhythm: regular Heart Sounds: Present: S1 & S2. Absent: gallop, rub Extremities: pulses intact, No edema, normal color, Full ROM - Gastrointestinal General gastrointestinal: Present: soft, tender, non-distended, normal bowel sounds, other (surgical dressing) - Genitourinary Male genitourinary: normal - Integumentary Integumentary: clear, warm, dry - Musculoskeletal Musculoskeletal: 1, strength equal bilaterally - Neurologic Neurologic: moves all extremities - Psychiatric Psychiatric: memory intact, appropriate mood/affect, intact judgment & insight Subjective Date of service: 04/12/18 Principal diagnosis: peritonitis Interval history: pt seen and examined Improved abdominal pain, Ambulating, off NG, off CLIENT SUPPORT MANAGER pump tolerating clear liquid diet explained and updated clinical status at bedside with RN Objective - Constitutional Vitals: Vital Signs - 12hr 04/12/18 04/12/18 04/12/18 05:12 05:18 07:19 Temperature 98.5 F Pulse Rate 74 74 72 Respiratory 17 Rate Blood Pressure 185/95 Blood Pressure 185/95 [Left] O2 Sat by Pulse 95 98 Oximetry 04/12/18 08:00 Temperature 98.2 F Pulse Rate 71 Respiratory 18 Rate Blood Pressure Blood Pressure 186/105 [Left] O2 Sat by Pulse Oximetry - Labs CBC & Chem 7: 04/13/18 04:16 04/13/18 04:16
[2018-04-12] MEDS: D5W/0.45% NACL/KCL 40 MEQ 40 MEQ/1,000 ML BAG IV SCH (14:43)
[2018-04-12] MEDS: LOPRESSOR PO SCH ×2 (14:46→21:35)
[2018-04-12] MEDS: BUSPAR PO SCH ×2 (16:35→21:35)
[2018-04-12] MEDS: NEURONTIN PO SCH (21:36)
[2018-04-12] MEDS: LOVENOX SUB-Q SCH (21:36)
[2018-04-13] MEDS: UNASYN/NS 3 GM/100 ML 3 GM/100 ML BAG IV SCH ×2 (01:30→06:00)
[2018-04-13 05:19] LABS: Hematocrit 40.4 % (35.5-45.6); Hemoglobin 13.6 gm/dl (11.8-15.2); Mean Corpuscular HGB Conc 34 % (32-34); Mean Corpuscular Hemoglobin 29 pg (28-32); Mean Corpuscular Volume 86 fl (84-94); Platelet Count 321 K/mm3 (140-440); Red Blood Count 4.68 M/mm3 (3.65-5.03); Red Cell Distribution Width 14.5 % (13.2-15.2)
[2018-04-13 05:43] LABS: BUN/Creatinine Ratio 9; Blood Urea Nitrogen 6 mg/dL (9-20); Calcium 8.7 mg/dL (8.4-10.2); Hemolysis Index 6
[2018-04-13] MEDS: APRESOLINE PO SCH ×4 (06:00→21:41)
[2018-04-13] MEDS: NORCO 5/325 PO PRN ×3 (06:06→17:34)
[2018-04-13 06:48] LABS: Basophils % (Manual) 0 % (0.0-1.8); Eosinophils % (Manual) 0 % (0.0-4.3); Total Cells Counted 100
[2018-04-13 06:49] LABS: Anisocytosis 1+
[2018-04-13] MEDS: BUSPAR PO SCH ×3 (08:32→21:33)
--- NOTE | 2018-04-13 09:16 | Gastroenterology Progress Note ---
<TONYA RENEE - Last Filed: 04/13/18 09:17> Assessment and Plan 1.perforated gastric ulcer -s/p exploratory laparotomy and sunitha patch of the perforated ulcer -etiology unclear- possibly 2/2 to NSAID/substance abuse vs other (given gastric location, less suspicion for ZES and gastric level would be elevated in post surgical setting so would be difficult to interpret if checked) -serologies to r/o H. pylori pending-f/u results in clinic -clinically, patient is stable w/o abd pain, N/V, or signs of bleeding. Tolerating liquids. -avoid NSAIDs -continue PPI -alcohol/substance cessation discussed/encouraged with patient -recommend patient follow up in clinic in 2-3 weeks after discharge- will need outpatient EGD in approximately 6 wks for further evaluation -further management per surgery -will sign off, please call if needed Subjective Date of service: 04/13/18 Principal diagnosis: perforated gastric ulcer Interval history: Patient sitting up in bed w/o acute distress. Denies abd pain, N/V, or signs of bleeding . Tolerating clears. Objective - Constitutional Vitals: Temp Pulse Resp BP Pulse Ox 98.5 F 78 18 168/97 93 04/13/18 07:46 04/13/18 08:33 04/13/18 07:46 04/13/18 08:33 04/13/18 07:46 General appearance: no acute distress - Respiratory Respiratory: bilateral: CTA - Cardiovascular Rhythm: regular Heart Sounds: Present: S1 & S2 - Gastrointestinal General gastrointestinal: Present: soft, non-tender, non-distended, normal bowel sounds, other (+surgical dressing C/D/I) - Neurologic Neurological: alert and oriented x3 - Labs CBC & Chem 7: 04/13/18 04:16 04/13/18 04:16 Labs: Laboratory Results - last 24 hr 04/13/18 04/13/18 04:16 04:16 WBC 7.1 RBC 4.68 Hgb 13.6 Hct 40.4 MCV 86 MCH 29 MCHC 34 RDW 14.5 Plt Count 321 [place] % (Auto) Pattern Illustrator Add Manual Diff Complete Total Counted 100 Seg Neuts % (Manual) 59.0 Band Neutrophils % 0 Lymphocytes % (Manual) 25.0 Reactive Lymphs % (Man) 0 Monocytes % (Manual) 16.0 H Eosinophils % (Manual) 0 Basophils % (Manual) 0 Metamyelocytes % 0 Myelocytes % 0 Promyelocytes % 0 Blast Cells % 0 Nucleated RBC % Not Reportable Seg Neutrophils # Man 4.2 Band Neutrophils # 0.0 Lymphocytes # (Manual) 1.8 Abs React Lymphs (Man) 0.0 Monocytes # (Manual) 1.1 H Eosinophils # (Manual) 0.0 Basophils # (Manual) 0.0 Metamyelocytes # 0.0 Myelocytes # 0.0 Promyelocytes # 0.0 Blast Cells # 0.0 WBC Morphology Not Reportable Hypersegmented Neuts Not Reportable Hyposegmented Neuts Not Reportable Hypogranular Neuts Not Reportable Smudge Cells Not Reportable Toxic Granulation Not Reportable Toxic Vacuolation Not Reportable Dohle Bodies Not Reportable Pelger-Huet Anomaly Not Reportable Sarai Rods Not Reportable Platelet Estimate Appears normal Clumped Platelets Not Reportable Plt Clumps, EDTA Not Reportable Large Platelets Not Reportable Giant Platelets Not Reportable Platelet Satelliting Not Reportable Plt Morphology Comment Not Reportable RBC Morphology Not Reportable Dimorphic RBCs Not Reportable Polychromasia Not Reportable Hypochromasia Not Reportable Poikilocytosis Not Reportable Anisocytosis 1+ Microcytosis Not Reportable Macrocytosis Not Reportable Spherocytes Not Reportable Pappenheimer Bodies Not Reportable Sickle Cells Not Reportable Target Cells Not Reportable Tear Drop Cells Not Reportable Ovalocytes Not Reportable Helmet Cells Not Reportable [place] Bodies Not Reportable [place] Rings Not Reportable Mario Cells Not Reportable Bite Cells Not Reportable Crenated Cell Not Reportable Elliptocytes Not Reportable Acanthocytes (Spur) Not Reportable Rouleaux Not Reportable Hemoglobin C Crystals Not Reportable Schistocytes Not Reportable Malaria parasites Not Reportable [place] Bodies Not Reportable Hem Pathologist Commnt No Sodium 140 Potassium 4.2 Chloride 102.5 Carbon Dioxide 27 Anion Gap 15 BUN 6 L Creatinine 0.7 L Estimated GFR > 60 BUN/Creatinine Ratio 9 Glucose 90 Calcium 8.7 <KATIE CARABALLO - Last Filed: 04/13/18 15:27> Assessment and Plan Pt seen and examined. Agree with note above. F/u in GI clinic after discharge and outpatient EGD as above. Objective - Constitutional Vitals: Temp Pulse Resp BP Pulse Ox 98.5 F 82 16 144/78 93 04/13/18 07:46 04/13/18 13:25 04/13/18 13:24 04/13/18 13:25 04/13/18 07:46 - Labs CBC & Chem 7: 04/13/18 04:16 04/13/18 04:16 Labs: Laboratory Results - last 24 hr 04/13/18 04/13/18 04:16 04:16 WBC 7.1 RBC 4.68 Hgb 13.6 Hct 40.4 MCV 86 MCH 29 MCHC 34 RDW 14.5 Plt Count 321 [place] % (Auto) Pattern Illustrator Add Manual Diff Complete Total Counted 100 Seg Neuts % (Manual) 59.0 Band Neutrophils % 0 Lymphocytes % (Manual) 25.0 Reactive Lymphs % (Man) 0 Monocytes % (Manual) 16.0 H Eosinophils % (Manual) 0 Basophils % (Manual) 0 Metamyelocytes % 0 Myelocytes % 0 Promyelocytes % 0 Blast Cells % 0 Nucleated RBC % Not Reportable Seg Neutrophils # Man 4.2 Band Neutrophils # 0.0 Lymphocytes # (Manual) 1.8 Abs React Lymphs (Man) 0.0 Monocytes # (Manual) 1.1 H Eosinophils # (Manual) 0.0 Basophils # (Manual) 0.0 Metamyelocytes # 0.0 Myelocytes # 0.0 Promyelocytes # 0.0 Blast Cells # 0.0 WBC Morphology Not Reportable Hypersegmented Neuts Not Reportable Hyposegmented Neuts Not Reportable Hypogranular Neuts Not Reportable Smudge Cells Not Reportable Toxic Granulation Not Reportable Toxic Vacuolation Not Reportable Dohle Bodies Not Reportable Pelger-Huet Anomaly Not Reportable Sarai Rods Not Reportable Platelet Estimate Appears normal Clumped Platelets Not Reportable Plt Clumps, EDTA Not Reportable Large Platelets Not Reportable Giant Platelets Not Reportable Platelet Satelliting Not Reportable Plt Morphology Comment Not Reportable RBC Morphology Not Reportable Dimorphic RBCs Not Reportable Polychromasia Not Reportable Hypochromasia Not Reportable Poikilocytosis Not Reportable Anisocytosis 1+ Microcytosis Not Reportable Macrocytosis Not Reportable Spherocytes Not Reportable Pappenheimer Bodies Not Reportable Sickle Cells Not Reportable Target Cells Not Reportable Tear Drop Cells Not Reportable Ovalocytes Not Reportable Helmet Cells Not Reportable [place] Bodies Not Reportable [place] Rings Not Reportable Mario Cells Not Reportable Bite Cells Not Reportable Crenated Cell Not Reportable Elliptocytes Not Reportable Acanthocytes (Spur) Not Reportable Rouleaux Not Reportable Hemoglobin C Crystals Not Reportable Schistocytes Not Reportable Malaria parasites Not Reportable [place] Bodies Not Reportable Hem Pathologist Commnt No Sodium 140 Potassium 4.2 Chloride 102.5 Carbon Dioxide 27 Anion Gap 15 BUN 6 L Creatinine 0.7 L Estimated GFR > 60 BUN/Creatinine Ratio 9 Glucose 90 Calcium 8.7
[2018-04-13] MEDS: DIOVAN PO SCH (09:27)
[2018-04-13] MEDS: LOPRESSOR PO SCH ×2 (09:27→21:34)
[2018-04-13] MEDS: NORVASC PO SCH (09:28)
[2018-04-13] MEDS: SODIUM CHLORIDE FLUSH SYRINGE 10 ML IV SCH (09:29)
--- NOTE | 2018-04-13 09:47 | Progress Note ---
Assessment and Plan Assessment: 1) Leukocytosis: resolved. Etiology most likely - acute peritonitis. 2) Acute peritonitis: from gastric perforation -CT of the abdomen show free air with her level fluid collection at the antrum of the stomach, multiple lymphadenopathies, focal dissected right, femoral artery. -S/P operating room on 04/07/2018 underwent exploratory laparotomy with repair of stomach perforation w sunitha patch -Peritoneal cx +normal skin anika -CRP=23 3) HTN 4) GERD 5) Nicotine Dependence 6) Depression 7) Substance Abuse 8) UTI: likely reactive 9) Elevated LFTs; likely from perf. Viral hep panel negative. HIV neg. Plan: -continue unasyn for now. OK to change to po abx once Dr Winchester says ok -upon discharge will do levaquin 750 mg po qday and flagyl 500 mg po TID total 14 days until 04/20 -tolerating clear fluids I am signing off Thank you for your consultation, will follow up with you. Harika Duncan MD Infectious Diseases Specialist [facility] M [phone] O [phone] Subjective Date of service: 04/13/18 Principal diagnosis: perforated gastric ulcer Interval history: Feels better, no fever, no abd pain. He wants to eat. NGT was removed Microbiology: Peritoneal cultures: 04/07 usual skin anika Current Antimicrobials: unasyn 04/10 Previous Antimicro Zosyn Fluconazole Objective - Exam Narrative Exam: General appearance: Alert in NAD, conversant Eyes: anicteric sclerae, moist conjunctivae; no lid-lag; PERRLA HENT: Atraumatic; oropharynx clear poor dentition Neck: Trachea midline; supple, no thyromegaly or lymphadenopathy Lungs: CTA, with normal respiratory effort and no intercostal retractions CV: RRR, no murmurs Abdomen: Soft, mild tenderness, midline surg wound w dressings Extremities: No peripheral edema or extremity lymphadenopathy Skin: Normal temperature, turgor and texture; no rash, ulcers or subcutaneous nodules Psych: Appropriate affect, alert and oriented to person, place and time. Neuro: alert and oriented x 3. Moving all extermities Lines: No CVL / PICC - Constitutional Vitals: Vital Signs Temp Pulse Resp BP Pulse Ox 98.5 F 78 18 168/97 93 04/13/18 07:46 04/13/18 09:28 04/13/18 07:46 04/13/18 09:28 04/13/18 07:46 Temperature -Last 24 Hours Temperature 98.5 F Temperature 98.4 F Temperature 98.7 F Temperature 98.8 F Temperature 98.1 F - Labs CBC & Chem 7: 04/13/18 04:16 04/13/18 04:16 Labs: Abnormal lab results 04/13/18 04/13/18 Range/Units 04:16 04:16 Monocytes % (Manual) 16.0 H (0.0-7.3) % Monocytes # (Manual) 1.1 H (0.0-0.8) K/mm3 BUN 6 L (9-20) mg/dL Creatinine 0.7 L (0.8-1.5) mg/dL
--- NOTE | 2018-04-13 10:27 | Progress Note ---
Assessment and Plan POD #5 Pt feeling well. deborah cl liq diet Abd soft, non tender surgically stable advance to full liqs Selected Entries 04/13/18 09:28 Pulse Rate 78 Blood Pressure 168/97 Laboratory Tests 04/13/18 04/13/18 04:16 04:16 WBC 7.1 Hgb 13.6 Hct 40.4 Sodium 140 Potassium 4.2 Chloride 102.5 Carbon Dioxide 27 Anion Gap 15 BUN 6 L Creatinine 0.7 L Objective Vital Signs - 12hr 04/12/18 04/13/18 04/13/18 23:52 04:43 06:00 Temperature 98.7 F 98.4 F Pulse Rate 57 L 62 62 Respiratory 18 17 Rate Blood Pressure 143/74 165/87 165/87 O2 Sat by Pulse 98 98 Oximetry 04/13/18 04/13/18 04/13/18 06:06 07:06 07:46 Temperature 98.5 F Pulse Rate 75 Respiratory 18 16 18 Rate Blood Pressure 168/97 O2 Sat by Pulse 93 Oximetry 04/13/18 04/13/18 04/13/18 08:33 09:27 09:28 Temperature Pulse Rate 78 78 78 Respiratory Rate Blood Pressure 168/97 168/97 168/97 O2 Sat by Pulse Oximetry - Labs 04/13/18 04:16 04/13/18 04:16 Diabetes panel 04/13/18 Range/Units 04:16 Sodium 140 (137-145) mmol/L Potassium 4.2 (3.6-5.0) mmol/L Chloride 102.5 (98-107) mmol/L Carbon Dioxide 27 (22-30) mmol/L BUN 6 L (9-20) mg/dL Creatinine 0.7 L (0.8-1.5) mg/dL Glucose 90 (75-100) mg/dL Calcium 8.7 (8.4-10.2) mg/dL Calcium panel 04/13/18 Range/Units 04:16 Calcium 8.7 (8.4-10.2) mg/dL Pituitary panel 04/13/18 Range/Units 04:16 Sodium 140 (137-145) mmol/L Potassium 4.2 (3.6-5.0) mmol/L Chloride 102.5 (98-107) mmol/L Carbon Dioxide 27 (22-30) mmol/L BUN 6 L (9-20) mg/dL Creatinine 0.7 L (0.8-1.5) mg/dL Glucose 90 (75-100) mg/dL Calcium 8.7 (8.4-10.2) mg/dL Adrenal panel 04/13/18 Range/Units 04:16 Sodium 140 (137-145) mmol/L Potassium 4.2 (3.6-5.0) mmol/L Chloride 102.5 (98-107) mmol/L Carbon Dioxide 27 (22-30) mmol/L BUN 6 L (9-20) mg/dL Creatinine 0.7 L (0.8-1.5) mg/dL Glucose 90 (75-100) mg/dL Calcium 8.7 (8.4-10.2) mg/dL
[2018-04-13] MEDS: LEVAQUIN PO SCH (11:18)
[2018-04-13] MEDS: FLAGYL PO SCH ×2 (13:25→21:33)
--- NOTE | 2018-04-13 16:01 | Progress Note ---
Assessment and Plan / SIRS (systemic inflammatory response syndrome) due to perforated gastric ulcer Iv antibiotic therapy per ID, supportive care, / Peritonitis (acute) generalized due to viscus perforation, cont abx, cx grew skin anika upon discharge will need levaquin 750 mg po qday and flagyl 500 mg po TID total 14 days until 04/20 - per ID recommendation / Perforated prepyloric/gastric ulcer CT ABdomen/pelvis with free air, surgery consulted in ED s/p exploratory laparotomy and sunitha patch of the perforated ulcer Post op Mx per surgery, off NG tube now, off CREATIVE WRITING ENGLISH PROFESSOR pump, started on clear liquid diet and advance as tolerated Plan for EGD outpt after 6 weeks / Hypertensive urgency, malignant monitor BP q shift, IV hydralazine prn, continue medical management cont clonidine path along with norvasc and hydralazine po / Focal right common femoral artery dissection Incidental finding on CT abdomen Vascular surgery consulted in ED, No emergent surgery planned / Nicotine dependence with withdrawal smoking cessation counseling, supportive care. / DVT prophylaxis SCD to BLE while in bed. Radiological data: CT abdomen/pelvis: Free intraperitoneal air and fluid. Non dependent air bubbles around the liver and anterior to the splenic flexure in the left upper quadrant. The most localized air bubbles appear to be around the region the distal gastric antrum and pylorus with air and fluid localized to this location. Findings are concerning for gastric or duodenal ulcer disease with perforation. Exam is motion degraded which limits the sensitivity. Multiple mildly prominent gastrohepatic ligament lymph nodes. Distal esophagus is incompletely imaged but extremely thick-walled. Bilateral adrenal hyperplasia. Physical exam: General appearance: Present: no acute distress, well-nourished - EENT Eyes: PERRL, EOM intact ENT: hearing intact, clear oral mucosa Ears: bilateral: normal - Neck Neck: supple, normal ROM - Respiratory Respiratory effort: normal Respiratory: bilateral: CTA - Cardiovascular Rhythm: regular Heart Sounds: Present: S1 & S2. Absent: gallop, rub Extremities: pulses intact, No edema, normal color, Full ROM - Gastrointestinal General gastrointestinal: Present: soft, tender, non-distended, normal bowel sounds, other (surgical dressing) - Genitourinary Male genitourinary: normal - Integumentary Integumentary: clear, warm, dry - Musculoskeletal Musculoskeletal: 1, strength equal bilaterally - Neurologic Neurologic: moves all extremities - Psychiatric Psychiatric: memory intact, appropriate mood/affect, intact judgment & insight Subjective Date of service: 04/13/18 Principal diagnosis: perforated gastric ulcer Interval history: pt seen and examined Improved abdominal pain, Ambulating, off NG, off CREATIVE WRITING ENGLISH PROFESSOR pump tolerating clear liquid diet explained and updated clinical status at bedside with RN Objective - Constitutional Vitals: Vital Signs - 12hr 04/13/18 04/13/18 04/13/18 04:43 06:00 06:06 Temperature 98.4 F Pulse Rate 62 62 Respiratory 17 18 Rate Blood Pressure 165/87 165/87 O2 Sat by Pulse 98 Oximetry 04/13/18 04/13/18 04/13/18 07:06 07:46 08:33 Temperature 98.5 F Pulse Rate 75 78 Respiratory 16 18 Rate Blood Pressure 168/97 168/97 O2 Sat by Pulse 93 Oximetry 04/13/18 04/13/18 04/13/18 09:27 09:28 13:24 Temperature Pulse Rate 78 78 Respiratory 16 Rate Blood Pressure 168/97 168/97 O2 Sat by Pulse Oximetry 04/13/18 13:25 Temperature Pulse Rate 82 Respiratory Rate Blood Pressure 144/78 O2 Sat by Pulse Oximetry - Labs CBC & Chem 7: 04/13/18 04:16 04/13/18 04:16 Labs: Abnormal lab results 04/13/18 04/13/18 Range/Units 04:16 04:16 Monocytes % (Manual) 16.0 H (0.0-7.3) % Monocytes # (Manual) 1.1 H (0.0-0.8) K/mm3 BUN 6 L (9-20) mg/dL Creatinine 0.7 L (0.8-1.5) mg/dL
[2018-04-13] MEDS: NEURONTIN PO SCH (21:33)
[2018-04-13] MEDS: LOVENOX SUB-Q SCH (21:35)
[2018-04-14] MEDS: D5W/0.45% NACL/KCL 40 MEQ 40 MEQ/1,000 ML BAG IV SCH (02:34)
[2018-04-14] MEDS: APRESOLINE PO SCH ×3 (05:41→21:07)
[2018-04-14] MEDS: FLAGYL PO SCH ×3 (05:42→21:07)
[2018-04-14] MEDS: SODIUM CHLORIDE FLUSH SYRINGE 10 ML IV SCH ×3 (05:42→21:08)
--- NOTE | 2018-04-14 09:39 | Progress Note ---
Assessment and Plan Assessment and plan: 53-year-old male was presented to the emergency department for the complaints of severe abdominal pain, nausea, vomiting. Emergency department workup was done and found to have peritonitis with bowel perforation Sepsis - Secondary to perforated gastric ulcer - Iv antibiotic therapy per ID, supportive care, Peritonitis (acute) generalized - due to viscus perforation, cont abx, cx grew skin anika - upon discharge will need levaquin 750 mg po qday and flagyl 500 mg po TID total 14 days until 04/20 - per ID recommendation Perforated prepyloric/gastric ulcer - CT ABdomen/pelvis with free air, - surgery consulted in ED s/p exploratory laparotomy and sunitha patch of the perforated ulcer - Post op Mx per surgery, off NG tube now, off PHOTOGRAMMETRIST pump, started on clear liquid diet and advance as tolerated - Plan for EGD outpt after 6 weeks Hypertensive urgency, malignant - Controlled - monitor BP q shift, IV hydralazine prn, continue medical management - cont clonidine path along with norvasc and hydralazine po Focal right common femoral artery dissection - Incidental finding on CT abdomen - Vascular surgery consulted in ED, No emergent surgery planned Nicotine dependence with withdrawal -smoking cessation counseling, supportive care. DVT prophylaxis - SCD to BLE while in bed. Radiological data: CT abdomen/pelvis: Free intraperitoneal air and fluid. Non dependent air bubbles around the liver and anterior to the splenic flexure in the left upper quadrant. The most localized air bubbles appear to be around the region the distal gastric antrum and pylorus with air and fluid localized to this location. Findings are concerning for gastric or duodenal ulcer disease with perforation. Exam is motion degraded which limits the sensitivity. Multiple mildly prominent gastrohepatic ligament lymph nodes. Distal esophagus is incompletely imaged but extremely thick-walled. Bilateral adrenal hyperplasia. History Interval history: Patient was seen and evaluated this morning, patient didn't have any abdominal pain, tolerated full liquid diet. Hospitalist Physical - Physical exam Narrative exam: Not in cardiopulmonary distress. The patient appeared well nourished and normally developed. Vital signs as documented. Head exam is unremarkable. No scleral icterus . Neck is without jugular venous distension, thyromegaly, or carotid bruits. Lungs are clear to auscultation. Cardiac exam reveals regular rate and Rhythm. First and second heart sounds normal. No murmurs, rubs or gallops. Abdominal exam reveals normal bowel sounds, clean dressing, non tender. Extremities are nonedematous and both femoral and pedal pulses are normal. 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 No focal weakness. - Constitutional Vitals: Temp Pulse Resp BP Pulse Ox 98.1 F 86 18 145/85 91 04/14/18 08:13 04/14/18 08:00 04/14/18 08:13 04/14/18 08:00 04/14/18 05:43 General appearance: Present: no acute distress Results - Labs CBC & Chem 7: 04/13/18 04:16 04/13/18 04:16 Labs: Laboratory Last Values WBC 7.1 K/mm3 (4.5-11.0) 04/13/18 04:16 RBC 4.68 M/mm3 (3.65-5.03) 04/13/18 04:16 Hgb 13.6 gm/dl (11.8-15.2) 04/13/18 04:16 Hct 40.4 % (35.5-45.6) 04/13/18 04:16 MCV 86 fl (84-94) 04/13/18 04:16 MCH 29 pg (28-32) 04/13/18 04:16 MCHC 34 % (32-34) 04/13/18 04:16 RDW 14.5 % (13.2-15.2) 04/13/18 04:16 Plt Count 321 K/mm3 (140-440) 04/13/18 04:16 Lymph % (Auto) 14.1 % (13.4-35.0) 04/10/18 04:05 [place] % (Auto) Epic Professional 04/13/18 04:16 Eos % (Auto) 0.4 % (0.0-4.3) 04/10/18 04:05 Baso % (Auto) 0.5 % (0.0-1.8) 04/10/18 04:05 Lymph # 1.5 K/mm3 (1.2-5.4) 04/10/18 04:05 [place] # 1.0 K/mm3 (0.0-0.8) H 04/10/18 04:05 Eos # 0.0 K/mm3 (0.0-0.4) 04/10/18 04:05 Baso # 0.1 K/mm3 (0.0-0.1) 04/10/18 04:05 Add Manual Diff Complete 04/13/18 04:16 Total Counted 100 04/13/18 04:16 Seg Neutrophils % 75.7 % (40.0-70.0) H 04/10/18 04:05 Seg Neuts % (Manual) 59.0 % (40.0-70.0) 04/13/18 04:16 Band Neutrophils % 0 % 04/13/18 04:16 Lymphocytes % (Manual) 25.0 % (13.4-35.0) 04/13/18 04:16 Reactive Lymphs % (Man) 0 % 04/13/18 04:16 Monocytes % (Manual) 16.0 % (0.0-7.3) H 04/13/18 04:16 Eosinophils % (Manual) 0 % (0.0-4.3) 04/13/18 04:16 Basophils % (Manual) 0 % (0.0-1.8) 04/13/18 04:16 Metamyelocytes % 0 % 04/13/18 04:16 Myelocytes % 0 % 04/13/18 04:16 Promyelocytes % 0 % 04/13/18 04:16 Blast Cells % 0 % 04/13/18 04:16 Nucleated RBC % Not Reportable 04/13/18 04:16 Seg Neutrophils # 8.2 K/mm3 (1.8-7.7) H 04/10/18 04:05 Seg Neutrophils # Man 4.2 K/mm3 (1.8-7.7) 04/13/18 04:16 Band Neutrophils # 0.0 K/mm3 04/13/18 04:16 Lymphocytes # (Manual) 1.8 K/mm3 (1.2-5.4) 04/13/18 04:16 Abs React Lymphs (Man) 0.0 K/mm3 04/13/18 04:16 Monocytes # (Manual) 1.1 K/mm3 (0.0-0.8) H 04/13/18 04:16 Eosinophils # (Manual) 0.0 K/mm3 (0.0-0.4) 04/13/18 04:16 Basophils # (Manual) 0.0 K/mm3 (0.0-0.1) 04/13/18 04:16 Metamyelocytes # 0.0 K/mm3 04/13/18 04:16 Myelocytes # 0.0 K/mm3 04/13/18 04:16 Promyelocytes # 0.0 K/mm3 04/13/18 04:16 Blast Cells # 0.0 K/mm3 04/13/18 04:16 WBC Morphology Not Reportable 04/13/18 04:16 Hypersegmented Neuts Not Reportable 04/13/18 04:16 Hyposegmented Neuts Not Reportable 04/13/18 04:16 Hypogranular Neuts Not Reportable 04/13/18 04:16 Smudge Cells Not Reportable 04/13/18 04:16 Toxic Granulation Not Reportable 04/13/18 04:16 Toxic Vacuolation Not Reportable 04/13/18 04:16 Dohle Bodies Not Reportable 04/13/18 04:16 Pelger-Huet Anomaly Not Reportable 04/13/18 04:16 Sarai Rods Not Reportable 04/13/18 04:16 Platelet Estimate Appears normal 04/13/18 04:16 Clumped Platelets Not Reportable 04/13/18 04:16 Plt Clumps, EDTA Not Reportable 04/13/18 04:16 Large Platelets Not Reportable 04/13/18 04:16 Giant Platelets Not Reportable 04/13/18 04:16 Platelet Satelliting Not Reportable 04/13/18 04:16 Plt Morphology Comment Not Reportable 04/13/18 04:16 RBC Morphology Not Reportable 04/13/18 04:16 Dimorphic RBCs Not Reportable 04/13/18 04:16 Polychromasia Not Reportable 04/13/18 04:16 Hypochromasia Not Reportable 04/13/18 04:16 Poikilocytosis Not Reportable 04/13/18 04:16 Anisocytosis 1+ 04/13/18 04:16 Microcytosis Not Reportable 04/13/18 04:16 Macrocytosis Not Reportable 04/13/18 04:16 Spherocytes Not Reportable 04/13/18 04:16 Pappenheimer Bodies Not Reportable 04/13/18 04:16 Sickle Cells Not Reportable 04/13/18 04:16 Target Cells Not Reportable 04/13/18 04:16 Tear Drop Cells Not Reportable 04/13/18 04:16 Ovalocytes Not Reportable 04/13/18 04:16 Helmet Cells Not Reportable 04/13/18 04:16 B[place] Bodies Not Reportable 04/13/18 04:16 Erick Rings Not Reportable 04/13/18 04:16 Mario Cells Not Reportable 04/13/18 04:16 Bite Cells Not Reportable 04/13/18 04:16 Crenated Cell Not Reportable 04/13/18 04:16 Elliptocytes Not Reportable 04/13/18 04:16 Acanthocytes (Spur) Not Reportable 04/13/18 04:16 Rouleaux Not Reportable 04/13/18 04:16 Hemoglobin C Crystals Not Reportable 04/13/18 04:16 Schistocytes Not Reportable 04/13/18 04:16 Malaria parasites Not Reportable 04/13/18 04:16 Roldan Bodies Not Reportable 04/13/18 04:16 Hem Pathologist Commnt No 04/13/18 04:16 PT 12.7 Sec. (12.2-14.9) 04/07/18 17:56 INR 0.91 (0.87-1.13) 04/07/18 17:56 APTT 30.3 Sec. (24.2-36.6) 04/07/18 17:56 Sodium 140 mmol/L (137-145) 04/13/18 04:16 Potassium 4.2 mmol/L (3.6-5.0) 04/13/18 04:16 Chloride 102.5 mmol/L (98-107) 04/13/18 04:16 Carbon Dioxide 27 mmol/L (22-30) 04/13/18 04:16 Anion Gap 15 mmol/L 04/13/18 04:16 BUN 6 mg/dL (9-20) L 04/13/18 04:16 Creatinine 0.7 mg/dL (0.8-1.5) L 04/13/18 04:16 Estimated GFR > 60 ml/min 04/13/18 04:16 BUN/Creatinine Ratio 9 % 04/13/18 04:16 Glucose 90 mg/dL (75-100) 04/13/18 04:16 Lactic Acid 1.60 mmol/L (0.7-2.0) 04/08/18 01:03 Calcium 8.7 mg/dL (8.4-10.2) 04/13/18 04:16 Total Bilirubin 0.50 mg/dL (0.1-1.2) 04/07/18 16:51 AST 48 units/L (5-40) H 04/07/18 16:51 ALT 25 units/L (7-56) 04/07/18 16:51 Alkaline Phosphatase 97 units/L (35-129) 04/07/18 16:51 C-Reactive Protein 23.40 mg/dL (0.00-1.30) H 04/09/18 14:04 Total Protein 7.9 g/dL (6.3-8.2) 04/07/18 16:51 Albumin 4.7 g/dL (3.9-5) 04/07/18 16:51 Albumin/Globulin Ratio 1.5 % 04/07/18 16:51 Urine Color Yellow (Yellow) 04/09/18 05:28 Urine Turbidity Cloudy (Clear) 04/09/18 05:28 Urine pH 5.0 (5.0-7.0) 04/09/18 05:28 Ur Specific [place] 1.031 (1.003-1.030) H 04/09/18 05:28 Urine Protein 300 mg/dl mg/dL (Negative) 04/09/18 05:28 Urine Glucose (UA) Neg mg/dL (Negative) 04/09/18 05:28 Urine Ketones Neg mg/dL (Negative) 04/09/18 05:28 Urine Blood Lg (Negative) 04/09/18 05:28 Urine Nitrite Neg (Negative) 04/09/18 05:28 Urine Bilirubin Neg (Negative) 04/09/18 05:28 Urine Urobilinogen < 2.0 mg/dL (<2.0) 04/09/18 05:28 Ur Leukocyte Esterase Sm (Negative) 04/09/18 05:28 Urine WBC (Auto) 31.0 /HPF (0.0-6.0) H 04/09/18 05:28 Urine RBC (Auto) 74.0 /HPF (0.0-6.0) 04/09/18 05:28 U Epithel Cells (Auto) 1.0 /HPF (0-13.0) 04/07/18 16:34 Hyaline Casts 10 /LPF 04/09/18 05:28 Granular Casts 9 /LPF 04/09/18 05:28 Urine Mucus Few /HPF 04/09/18 05:28 Hepatitis A IgM Ab Non-reactive (NonReactive) 04/09/18 14:04 Hep Bs Antigen Non-reactive (Negative) 04/09/18 14:04 Hep B Core IgM Ab Non-reactive (NonReactive) 04/09/18 14:04 Hepatitis C Antibody Non-reactive (NonReactive) 04/09/18 14:04 HIV 1&2 Antibody Rapid Non react (Non React) 04/09/18 14:04 HIV P24 Antigen Non react (Non React) 04/09/18 14:04 Blood Type O POSITIVE 04/07/18 17:48 Antibody Screen Negative 04/07/18 17:48
[2018-04-14] MEDS: LOPRESSOR PO SCH ×2 (11:00→21:07)
[2018-04-14] MEDS: LEVAQUIN PO SCH (11:01)
[2018-04-14] MEDS: DIOVAN PO SCH (11:01)
[2018-04-14] MEDS: BUSPAR PO SCH ×3 (11:02→21:07)
[2018-04-14] MEDS: NORCO 5/325 PO PRN (11:10)
[2018-04-14] MEDS: NORVASC PO SCH (11:11)
--- NOTE | 2018-04-14 12:06 | Progress Note ---
Assessment and Plan POD # 6 Pt feeling well. deborah full liq. Abd soft solid diet. may d/c IVF if diet deborah replenish K d/c ken in am possible d/c in am if diet deborah rto I wk Selected Entries 04/14/18 04/14/18 08:13 11:01 Temperature 98.1 F Pulse Rate 86 Respiratory 18 Rate Blood Pressure 145/85 Objective Vital Signs - 12hr 04/14/18 04/14/18 04/14/18 05:30 05:31 05:41 Temperature Pulse Rate 67 69 78 Respiratory Rate Blood Pressure 178/95 178/95 Blood Pressure [Left] O2 Sat by Pulse 99 98 Oximetry 04/14/18 04/14/18 04/14/18 05:43 08:00 08:13 Temperature 98.2 F 98.4 F 98.1 F Pulse Rate 68 86 Respiratory 18 18 18 Rate Blood Pressure Blood Pressure 178/95 145/85 [Left] O2 Sat by Pulse 91 Oximetry 04/14/18 04/14/18 11:00 11:01 Temperature Pulse Rate 86 86 Respiratory Rate Blood Pressure 145/85 145/85 Blood Pressure [Left] O2 Sat by Pulse Oximetry - Labs 04/13/18 04:16 04/13/18 04:16
[2018-04-14] MEDS: NEURONTIN PO SCH (21:06)
[2018-04-14] MEDS: LOVENOX SUB-Q SCH (21:07)
[2018-04-15] MEDS: FLAGYL PO SCH (06:37)
[2018-04-15] MEDS: APRESOLINE PO SCH (06:37)
[2018-04-15 09:05] VITALS: BP 149/84
[2018-04-15] MEDS: SODIUM CHLORIDE FLUSH SYRINGE 10 ML IV SCH (10:00)
[2018-04-15] MEDS ORDERED: PROTONIX PO SCH (10:00)
[2018-04-15] MEDS: DIOVAN PO SCH (10:53)
[2018-04-15] MEDS: LOPRESSOR PO SCH (10:53)
[2018-04-15] MEDS: LEVAQUIN PO SCH (10:54)
[2018-04-15] MEDS: NORCO 5/325 PO PRN (10:56)
[2018-04-15] MEDS: NORVASC PO SCH (10:57)
[2018-04-15] MEDS: BUSPAR PO SCH (10:57)
--- NOTE | 2018-04-15 12:14 | Discharge Summary ---
Providers - Providers Date of Admission: 04/07/18 21:25 Attending physician: CARITO FERRELL MD 04/07/18 17:50 Consult to Physician [CONS] Urgent Comment: Dr. Sauceda spoke with Dr. Winchester Consulting Provider: JOHN WINCHESTER Physician Instructions: Reason For Exam: probable bowel perforation 04/07/18 21:27 Consult to Physician [CONS] Routine Comment: Consulting Provider: MAGDIEL SCHRADER Physician Instructions: Reason For Exam: perf viscus sepsis 04/08/18 12:14 Consult to Wound/ET Nurse [CONS] Routine Reason For Exam: wound eval- begin local wd care in am 04/12/18 07:52 Consult to Physician [CONS] Routine Comment: Consulting Provider: MEJIA DAMIAN Physician Instructions: Reason For Exam: s/p perf Peptic ulcer Primary care physician: INSIDE SALES COORDINATOR Hospitalization Reason for admission: Peritonitis, perforated viscus Condition: Serious Disposition: DC-01 TO HOME OR SELFCARE Time spent for discharge: 32 minutes - Discharge Diagnoses (1) Sepsis Status: Acute Qualifiers: Sepsis type: sepsis due to unspecified organism Qualified Code(s): A41.9 - Sepsis, unspecified organism (2) Bowel perforation Status: Acute (3) Dissection of other specified artery Status: Acute (4) Hypertensive urgency, malignant Status: Acute (5) Injury of right common femoral artery Status: Acute Qualifiers: Encounter type: initial encounter Qualified Code(s): S75.001A - Unspecified injury of femoral artery, right leg, initial encounter (6) Nicotine dependence with withdrawal Status: Acute Qualifiers: Nicotine product type: cigarettes Qualified Code(s): F17.213 - Nicotine dependence, cigarettes, with withdrawal (7) Peritonitis (acute) generalized Status: Acute Core Measure Documentation - Palliative Care Palliative Care/ Comfort Measures: Not Applicable - Core Measures Any of the following diagnoses?: none Exam - Physical Exam Narrative exam: Not in cardiopulmonary distress. The patient appeared well nourished and normally developed. Vital signs as documented. Head exam is unremarkable. No scleral icterus . Neck is without jugular venous distension, thyromegaly, or carotid bruits. Lungs are clear to auscultation. Cardiac exam reveals regular rate and Rhythm. First and second heart sounds normal. No murmurs, rubs or gallops. Abdominal exam reveals normal bowel sounds, clean dressing, non tender. Extremities are nonedematous and both femoral and pedal pulses are normal. 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 No focal weakness. - Constitutional Vitals: Temp Pulse Resp BP Pulse Ox 98.1 F 68 18 149/84 97 04/15/18 07:49 04/15/18 10:53 04/15/18 07:49 04/15/18 10:53 04/15/18 07:49 Plan Activity: no restrictions Weight Bearing Status: Full Weight Bearing Diet: regular Additional Instructions: f/u at [facility] in 1-2 weeks Follow up with: PRIMARY CARE, [Primary Care Provider] - 3-5 Days Prescriptions: Gabapentin [Neurontin] 100 mg PO QHS #30 capsule amLODIPine [Norvasc] 10 mg PO QDAY #30 tablet Baclofen [Lioresal] 10 mg PO TID #30 tablet busPIRone [Buspar] 5 mg PO TID #30 tablet HYDROcodone/APAP 5-325 [[place] 5-325 mg TAB] 2 each PO Q4H PRN #12 tablet PRN Reason: Pain, Severe (7-10) levoFLOXacin [Levaquin TAB] 750 mg PO Q24H #5 tablet metroNIDAZOLE [Flagyl TAB] 500 mg PO Q8HR #15 tablet Pantoprazole Sodium [Protonix GRANULES] 40 mg PO QDAY #30 packet Valsartan [Diovan] 160 mg PO DAILY #30 tablet
--- NOTE | 2018-04-15 12:23 | Progress Note ---
Assessment and Plan Pt feeling well without compl. deborah reg diet Abd soft, non tender december d/c from surg perspective PPI's antibiotics as per ID d/c ken and steristrip incision prior to d/c rto this Fri Selected Entries 04/15/18 04/15/18 07:49 10:53 Temperature 98.1 F Pulse Rate 68 Respiratory 18 Rate Blood Pressure 149/84 Objective Vital Signs - 12hr 04/15/18 04/15/18 04/15/18 04:48 07:49 07:50 Temperature 98.2 F 98.1 F Pulse Rate 68 Respiratory 18 18 Rate Blood Pressure 127/86 149/84 149/84 O2 Sat by Pulse 97 Oximetry 04/15/18 10:53 Temperature Pulse Rate 68 Respiratory Rate Blood Pressure 149/84 O2 Sat by Pulse Oximetry - Labs 04/13/18 04:16 04/13/18 04:16
--- NOTE | 2018-04-15 16:02 | Progress Note ---
Assessment and Plan Assessment: 1) Leukocytosis: resolved. Etiology most likely - acute peritonitis. 2) Acute peritonitis: from gastric perforation -CT of the abdomen show free air with her level fluid collection at the antrum of the stomach, multiple lymphadenopathies, focal dissected right, femoral artery. -S/P operating room on 04/07/2018 underwent exploratory laparotomy with repair of stomach perforation w sunitha patch -Peritoneal cx +normal skin anika -CRP=23 3) HTN 4) GERD 5) Nicotine Dependence 6) Depression 7) Substance Abuse 8) UTI: likely reactive 9) Elevated LFTs; likely from perf. Viral hep panel negative. HIV neg. Plan: -continue levaquin 750 mg po qday and flagyl 500 mg po TID total 14 days until 04/20 -tolerating regular diet I am signing off Thank you for your consultation, will follow up with you. Harika Duncan MD Infectious Diseases Specialist [facility] M [phone] O [phone] Subjective Date of service: 04/15/18 Principal diagnosis: perforated gastric ulcer Interval history: Feels better, tolerating regular diet no fever Microbiology: Peritoneal cultures: 04/07 usual skin anika Current Antimicrobials: levaquin flagyl Previous Antimicro Zosyn Fluconazole unasyn 04/10-04/13 Objective - Exam Narrative Exam: General appearance: Alert in NAD, conversant Eyes: anicteric sclerae, moist conjunctivae; no lid-lag; PERRLA HENT: Atraumatic; oropharynx clear poor dentition Neck: Trachea midline; supple, no thyromegaly or lymphadenopathy Lungs: CTA, with normal respiratory effort and no intercostal retractions CV: RRR, no murmurs Abdomen: Soft, mild tenderness, midline surg wound w dressings Extremities: No peripheral edema or extremity lymphadenopathy Skin: Normal temperature, turgor and texture; no rash, ulcers or subcutaneous nodules Psych: Appropriate affect, alert and oriented to person, place and time. Neuro: alert and oriented x 3. Moving all extermities Lines: No CVL / PICC - Constitutional Vitals: Vital Signs Temp Pulse Resp BP Pulse Ox 98.1 F 68 18 149/84 97 04/15/18 07:49 04/15/18 10:53 04/15/18 07:49 04/15/18 10:53 04/15/18 07:49 Temperature -Last 24 Hours Temperature 98.1 F Temperature 98.2 F Temperature 98.6 F Temperature 98.4 F - Labs CBC & Chem 7: 04/13/18 04:16 04/13/18 04:16
== END 2018-04-15 14:30 | disposition home or self-care (01) | DRG 853 ==
LOC: ED 16:21 → CC1 21:25 → 3B-SURG 04-08 09:29
PROVIDERS: ADMIT Internal Medicine; ATTEND Internal Medicine
PROC: 0DU607Z Supplement Stomach with Autologous Tissue Substitute, Open Approach (ICD-10-PCS; principal; 2018-04-07)
PROC: 5A1935Z Respiratory Ventilation, Less than 24 Consecutive Hours (ICD-10-PCS; 2018-04-07)
PROC: 0BH17EZ Insertion of Endotracheal Airway into Trachea, Via Natural or Artificial Opening (ICD-10-PCS; 2018-04-07)
DX: A41.9 Sepsis, unspecified organism (principal); K25.5 Chronic or unspecified gastric ulcer with perforation; I77.77 Dissection of artery of lower extremity; K65.0 Generalized (acute) peritonitis; F17.213 Nicotine dependence, cigarettes, with withdrawal; N39.0 Urinary tract infection, site not specified; F41.9 Anxiety disorder, unspecified; I16.0 Hypertensive urgency; K21.9 Gastro-esophageal reflux disease without esophagitis; I10 Essential (primary) hypertension; F15.10 Other stimulant abuse, uncomplicated; F32.9 Major depressive disorder, single episode, unspecified; F14.90 Cocaine use, unspecified, uncomplicated; T39.395A Adverse effect of other nonsteroidal anti-inflammatory drugs [NSAID], initial encounter; Y92.89 Other specified places as the place of occurrence of the external cause; Z71.6 Tobacco abuse counseling; Z71.51 Drug abuse counseling and surveillance of drug abuser
CPT/HCPCS: 36415; 71045; 74019; 74177; 80048; 80053; 80074; 81001; 82140; 85007; 85025; 85027; 85610; 85730; 86140; 86850; 86900; 86901; 87075; 87086; 87116; 87806; 93005; 93010; 94002; 94760; 99406; C9113; J0295; J0330; J0360; J0690; J1170; J1450; J1650; J2250; J2405; J2543; J2704; J3010; J3370; J7030; J7040; Q9967